=== PATIENT | female | born 1960 ===

== ENCOUNTER 2021-04-14 12:09 | Inpatient (IN) | payer OTHER ==
--- NOTE | 2021-04-14 12:33 | Emergency Department Report ---
- General Stated complaint: GENERAL,WEAKNESS Time Seen by Provider: 04/14/21 12:29 - History of Present Illness Initial comments: 60-year-old female, no past medical history, presents to ED with generalized weakness. Patient tested positive for COVID-19 1 week ago. She reports body aches, sore throat, generalized weakness, mild shortness of breath. Patient tested positive for COVID-19 at [facility]. At that time her O2 sats were 92% on room air according to her discharge paperwork. Today, patient went to [facility] because she was feeling more weak. Patient was found to be hypoxic in the clinic, so EMS was called. Patient transported here to the ED. Her current O2 sats are 87% on room air. Patient is unvaccinated against COVID-19. Complaint: generalized weakness -: week(s) (1) Location: generalized Severity: moderate Consistency: constant Improves with: none Worsens with: none Associated Symptoms: myalgias, shortness of breath. denies: chest pain, fever/chills ED Review of Systems ROS: Stated complaint: GENERAL,WEAKNESS Other details as noted in HPI Comment: All other systems reviewed and negative Constitutional: weakness. denies: fever ENT: throat pain Respiratory: shortness of breath. denies: cough Cardiovascular: denies: chest pain Musculoskeletal: myalgia ED Physical Exam - General General appearance: alert, in no apparent distress - Head Head exam: Present: atraumatic, normocephalic - Eye Eye exam: Present: normal appearance, EOMI - ENT ENT exam: Present: mucous membranes moist - Neck Neck exam: Present: normal inspection - Respiratory Respiratory exam: Present: normal lung sounds bilaterally. Absent: respiratory distress - Cardiovascular Cardiovascular Exam: Present: regular rate, normal rhythm - GI/Abdominal GI/Abdominal exam: Present: soft. Absent: distended, tenderness - Extremities Exam Extremities exam: Present: normal inspection - Neurological Exam Neurological exam: Present: alert, oriented X3 - Psychiatric Psychiatric exam: Present: normal affect, normal mood - Skin Skin exam: Present: warm, dry, intact, normal color ED Course Vital Signs 04/14/21 04/14/21 04/14/21 12:20 13:00 13:30 Temperature 98.3 F Pulse Rate 84 87 85 Respiratory 22 22 21 Rate Blood Pressure 86/62 83/61 98/62 O2 Sat by Pulse 86 96 99 Oximetry 04/14/21 04/14/21 14:00 14:30 Temperature Pulse Rate 87 86 Respiratory 24 21 Rate Blood Pressure 112/64 112/64 O2 Sat by Pulse 92 93 Oximetry ED Medical Decision Making - Lab Data Result diagrams: 04/14/21 12:51 04/14/21 12:51 - Radiology Data Radiology results: report reviewed, image reviewed - Medical Decision Making 60-year-old female, Covid positive, with O2 sats of 87% on room air. Chest x- ray shows patchy bilateral pneumonia. Blood cultures drawn, patient given Decadron, Rocephin, azithromycin. Patient comfortable on 5 L O2 via nasal cannula. Patient will be admitted to hospitalist, Dr. Harmon, for further management. - Differential Diagnosis COVID-19, pneumonia Critical care attestation.: If time is entered above; I have spent that time in minutes in the direct care of this critically ill patient, excluding procedure time. ED Disposition Clinical Impression: COVID-19, Pneumonia, Acute respiratory failure with hypoxia Disposition: ADMITTED INPATIENT Is pt being admited?: Yes Condition: Stable
[2021-04-14] MEDS ORDERED: cefTRIAXone/NS 1 GM/50 ML 1 GM/50 ML BAG IV ONE (12:34)
[2021-04-14] MEDS ORDERED: DEXAMETHASONE 4 MG TAB PO ONE (12:34)
[2021-04-14 13:08] LABS: Hematocrit 40.6 % (30.3-42.9); Hemoglobin 13.1 gm/dl (10.1-14.3); Mean Corpuscular HGB Conc 32 % (30-34); Mean Corpuscular Volume 81 fl (79-97); Red Blood Count 5.04 M/mm3 (3.65-5.03)
[2021-04-14 13:28] LABS: Alanine Aminotransferase 12 units/L (7-56); Albumin 3.8 g/dL (3.9-5); Blood Urea Nitrogen 6 mg/dL (7-17); Calcium 7.9 mg/dL (8.4-10.2); Hemolysis Index 5
[2021-04-14] MEDS ORDERED: dexAMETHasone 4 MG/ML VIAL ONE (13:49)
[2021-04-14] MEDS ORDERED: AZITHROMYCIN/NS 500 MG/250 ML 500 MG/250 ML BAG IV ONE (13:49)
[2021-04-14] MEDS ORDERED: HYDROmorphone 1 MG/1 ML INJ IV PRN (13:59)
[2021-04-14] MEDS ORDERED: ONDANSETRON 4 MG/2 ML INJ IV PRN (13:59)
[2021-04-14] MEDS ORDERED: oxyCODONE /ACETAMINOPHEN 5-325MG TAB PO PRN (13:59)
[2021-04-14] MEDS ORDERED: SODIUM CHLORIDE 0.9% 1000 ML 1,000 ML IV ONE (14:00)
--- NOTE | 2021-04-14 14:00 | History and Physical Report ---
History of Present Illness Chief complaint: I am weak and I cannot breathe History of present illness: 60 YO Female with Coronavirus Infection diagnosed 1 week ago presents to ED for evaluation. Patient reports "I am weak and I cannot breathe". Patient states that she has experienced shortness of breath, subjective fever, loss of sense of smell, loss of sense of taste, generalized weakness, diminished exercise yanelis erance, body aches, fatigue, malaise over the past 1 week with persistent and worsening symptoms over the same timeframe. Patient diagnosed with coronavirus infection 1 week ago and was treated with outpatient therapy with worsening symptoms. EMS was notified and upon arrival the patient was found to be in distress and subsequent transported to [facility] for further care and evaluation of the aforementioned symptoms. The patient was seen and evaluated in the emergency department. All lab and imaging studies reviewed. Patient found to have a pulse oximetry of 87% while on room air which is consistent with acute hypoxemic respiratory failure. Chest x-ray revealed bilateral pneumonia. Patient admitted to medical floor and initiated on pneumonia protocol as well as coronavirus protocol. Patient knowledges subjective fever, denies chills, chest pain, palpitation, skin rash, recent ill contacts. No prior admission for review. No medication listed at time of admission for reconciliation. Advanced care planning conducted in ED. Patient is not vaccinated against COVID-19. Past History Past Medical History: other (See HPI) Past Surgical History: No surgical history, Other (Reviewed) Social history: single. denies: smoking, alcohol abuse, prescription drug abuse Family history: hypertension Medications and Allergies Active Meds: Active Medications Azithromycin (Azithromycin 250 Mg Tab) 500 mg PO ONCE ONE; Protocol Stop: 04/14/21 12:35 Dexamethasone (Dexamethasone 4 Mg Tab) 6 mg PO ONCE ONE Stop: 04/14/21 12:35 Ceftriaxone Sodium (Rocephin/Ns 1 Gm/50 Ml) 1 gm in 50 mls @ 100 mls/hr IV ONCE ONE; Protocol Stop: 04/14/21 13:03 Review of Systems Constitutional: fever, weakness, malaise, lethargy Ears, nose, mouth and throat: other (Loss of sense of smell, loss of sense of taste), no ear pain, no tinnitis, no decreased hearing, no nasal congestion Breasts: no change in shape, no swelling, no mass Cardiovascular: no chest pain, no orthopnea, no rapid/irregular heart beat, no syncope, no lightheadedness Respiratory: cough, shortness of breath Gastrointestinal: no nausea, no vomiting, no diarrhea, no constipation Genitourinary Female: no pelvic pain, no flank pain, no dysuria, no urinary frequency, no urgency Rectal: no pain, no incontinence, no bleeding Musculoskeletal: no neck stiffness, no neck pain, no shooting arm pain, no arm numbness/tingling, no shooting leg pain, no leg numbness/tingling Integumentary: no rash, no redness, no sores, no jaundice Neurological: no head injury, no paralysis, no parathesias, no tingling, no syncope, no tremors Psychiatric: no anxiety, no change in sleep habits, no insomnia, no hypersomnia, no change in appetite, no suicidal ideation Endocrine: no cold intolerance, no polyphagia, no polydipsia, no nocturia, no flushing Hematologic/Lymphatic: no easy bruising, no easy bleeding, no lymphedema Allergic/Immunologic: no urticaria, no allergic rhinitis, no anaphylaxis Exam - Constitutional General appearance: Present: mild distress - EENT Eyes: Present: PERRL ENT: hearing intact, clear oral mucosa - Neck Neck: Present: supple, normal ROM - Respiratory Respiratory effort: labored, accessory muscle use Respiratory: bilateral: diminished, rhonchi - Cardiovascular Heart Sounds: Present: S1 & S2. Absent: rub, click - Extremities Extremities: pulses symmetrical, No edema Peripheral Pulses: within normal limits - Abdominal General gastrointestinal: Present: soft, non-tender, non-distended, normal bowel sounds Female genitourinary: Present: normal - Integumentary Integumentary: Present: clear, warm, dry - Musculoskeletal Musculoskeletal: gait normal, strength equal bilaterally - Psychiatric Psychiatric: appropriate mood/affect, intact judgment & insight - Neurologic Neurologic: CNII-XII intact, moves all extremities Results - Labs CBC & Chem 7: 04/14/21 12:51 04/14/21 12:51 Labs: Abnormal lab results 04/14/21 04/14/21 04/14/21 Range/Units 12:51 12:51 12:51 D-Dimer 986.33 H (0-234) ng/mlDDU Potassium 3.4 L (3.6-5.0) mmol/L Chloride 96.1 L (98-107) mmol/L BUN 6 L (7-17) mg/dL Calcium 7.9 L (8.4-10.2) mg/dL Ferritin 308.5 H (10.0-200.0) ng/mL AST 56 H (5-40) units/L Lactate Dehydrogenase 505 H (91-180) units/L C-Reactive Protein 16.80 H (0.00-1.30) mg/dL Albumin 3.8 L (3.9-5) g/dL Assessment and Plan - Patient Problems (1) Acute respiratory failure Current Visit: Yes Status: Acute Qualifiers: Respiratory failure complication: hypoxia Qualified Code(s): J96.01 - Acute respiratory failure with hypoxia Plan to address problem: Chest x-ray, supplemental oxygen, pulse oximetry, nebulizer therapy, prone positioning while in bed, pulmonary toilet (2) Coronavirus infection Current Visit: Yes Status: Acute Plan to address problem: Coronavirus protocol: IV antibiotic therapy, IV steroid therapy, supplemental oxygen, pulse oximetry, vitamin C therapy, vitamin D therapy, zinc therapy, prophylactic anticoagulation. (3) Pneumonia Current Visit: Yes Status: Acute Plan to address problem: Pneumonia protocol: Chest x-ray, CBC, CMP, supplemental oxygen, pulse oximetry, nebulizer therapy, blood culture. (4) COVID-19 vaccination not done Current Visit: Yes Status: Acute (5) DVT prophylaxis Current Visit: Yes Status: Acute Plan to address problem: SCD to bilateral lower extremities while in bed, prophylactic anticoagulation (6) Advance care planning Current Visit: Yes Status: Acute Plan to address problem: Disease education conducted, care plan discussed, prior diagnosis discussed, prognosis discussed, patient is full code, patient knowledges understanding agree with care plan. Patient counseled regarding lack of vaccination status. Patient counseled regarding vaccination after discharge from hospital. +30 minutes.
[2021-04-14 14:05] LABS: BUN/Creatinine Ratio 10; Bilirubin,Direct < 0.2 mg/dL (0-0.2); Platelet Count 160 K/mm3 (140-440); Red Cell Distribution Width 21.6 % (13.2-15.2)
[2021-04-14] MEDS: AZITHROMYCIN 250 MG TAB PO ONE ×2 (14:22→15:29)
[2021-04-14 14:26] LABS: Anisocytosis 1+; Large Platelets Few; Platelet Estimate Consistent w Auto; Total Cells Counted 100
--- NOTE | 2021-04-14 14:40 | XRay Report ---
CHEST 1 VIEW INDICATION: cough. COMPARISON: None FINDINGS: SUPPORT DEVICES: None. HEART: Mild cardiomegaly. LUNGS/PLEURA: Moderate patchy bibasilar consolidation. ADDITIONAL FINDINGS: None. IMPRESSION: 1. Moderate patchy bibasilar consolidation. Signer Name: Bran Sosa MD Signed: 04/14/2021 2:36 PM Workstation Name: [id number] [id number]
[2021-04-14] MEDS: AZITHROMYCIN/NS 500 MG/250 ML 500 MG/250 ML BAG IV SCH (15:29)
[2021-04-14] MEDS: cefTRIAXone/NS 2 GM/100 ML 2 GM/100 ML BAG IV SCH (15:29)
[2021-04-14] MEDS: methylPREDNISolone Sod Succinate 40 MG/1 ML INJ IV SCH (22:35)
[2021-04-14] MEDS: ZINC SULFATE 220 MG CAP PO SCH (22:40)
[2021-04-14] MEDS: ASCORBIC ACID 500 MG TAB PO SCH (22:40)
[2021-04-14] MEDS: HEPARIN 5,000 UNIT/1 ML VIAL SUB-Q SCH (22:40)
[2021-04-14] MEDS: FAMOTIDINE 20 MG TAB PO SCH (22:40)
[2021-04-15 04:38] LABS: Hematocrit 38.2 % (30.3-42.9); Hemoglobin 12.2 gm/dl (10.1-14.3); Mean Corpuscular HGB Conc 32 % (30-34); Mean Corpuscular Volume 80 fl (79-97); Platelet Count 190 K/mm3 (140-440); Red Blood Count 4.77 M/mm3 (3.65-5.03); Red Cell Distribution Width 19.1 % (13.2-15.2)
[2021-04-15 04:46] LABS: Blood Urea Nitrogen 7 mg/dL (7-17); Calcium 7.5 mg/dL (8.4-10.2); Hemolysis Index 8
[2021-04-15 04:53] LABS: BUN/Creatinine Ratio 14
[2021-04-15 06:33] LABS: Total Cells Counted 100
[2021-04-15 06:34] LABS: Band Neutrophils # (Manual) 0.4 K/mm3; Hypochromasia 1+
[2021-04-15 06:35] LABS: Large Platelets Few; Platelet Estimate Consistent w Auto
[2021-04-15] MEDS: methylPREDNISolone Sod Succinate 40 MG/1 ML INJ IV SCH ×3 (07:35→23:01)
--- NOTE | 2021-04-15 08:02 | Progress Note ---
Assessment and Plan Assessment and plan: 6-year-old female with no significant past medical history who presented with shortness of breath after COVID-19 diagnosis a week ago. Found to be in acute hypoxic respiratory failure. CT was negative for PE, but shows bilateral pneumonia. Currently on 8 L. Guarded prognosis. #Acute hypoxic respiratory failure #COVID-19 pneumonia #Community-acquired pneumonia -COVID-19 PCR positive, patient reports testing positive a week ago at [facility] -CTA negative for PE, shows bilateral opacities with super imposed bilateral lower lobe consolidations -To new supplemental O2, will wean as able -Maintain oxygen saturations greater than 90% -Low threshold for Pulmonology consult if patient requires increased oxygen saturation -Continue azithromycin and Rocephin -Dexamethasone x10 days -Infectious disease consulted, assistance appreciated -Encouraged proning #Leukopenia -White blood cell count 3.3 -Likely secondary to infection -will continue to monitor #Splenic artery aneurysm -Incidental finding on CT -1.8 x 1.9 cm in size Disposition Plan: Continue medical management Total Time Spent with Patient (Minutes): 20 minutes History Interval history: No acute events. Patient saturating in high 80s on 8L, increased to 10. Patient hungarian speaking and [employer] phone was used for translation. Reports having a headache and cough. Otherwise comfortable. Hospitalist Physical - Physical exam Narrative exam: GENERAL: Well-developed well-nourished. Sitting up in bed, no acute distress. HEENT: NC @ 8LPM. NECK: Supple. CHEST/LUNGS: Decreased breath sounds bilaterally. HEART/CARDIOVASCULAR: RRR. No murmur, rubs or gallops appreciated. ABDOMEN: +BS. NT/ND. SKIN: No rashes noted. NEURO: No focal motor deficit. Follows all commands. MUSCULOSKELETAL: No joint effusion EXTREMITIES: No cyanosis, clubbing or edema. PSYCH: Cooperative. - Constitutional Vitals: Temp Pulse Resp BP Pulse Ox 98.3 F 79 25 H 138/82 89 04/14/21 12:20 04/15/21 02:00 04/15/21 02:00 04/15/21 02:00 04/15/21 02:00 General appearance: Present: mild distress Results - Labs CBC & Chem 7: 04/16/21 07:11 04/16/21 07:11 Labs: Laboratory Last Values WBC 3.3 K/mm3 (4.5-11.0) L 04/15/21 04:11 RBC 4.77 M/mm3 (3.65-5.03) 04/15/21 04:11 Hgb 12.2 gm/dl (10.1-14.3) 04/15/21 04:11 Hct 38.2 % (30.3-42.9) 04/15/21 04:11 MCV 80 fl (79-97) 04/15/21 04:11 MCH 26 pg (28-32) L 04/15/21 04:11 MCHC 32 % (30-34) 04/15/21 04:11 RDW 19.1 % (13.2-15.2) H 04/15/21 04:11 Plt Count 190 K/mm3 (140-440) 04/15/21 04:11 Add Manual Diff Complete 04/15/21 04:11 Total Counted 100 04/15/21 04:11 Seg Neuts % (Manual) 67.0 % (40.0-70.0) 04/15/21 04:11 Band Neutrophils % 11.0 % 04/15/21 04:11 Lymphocytes % (Manual) 11.0 % (13.4-35.0) L 04/15/21 04:11 Reactive Lymphs % (Man) 1.0 % 04/15/21 04:11 Monocytes % (Manual) 7.0 % (0.0-7.3) 04/15/21 04:11 Basophils % (Manual) 1.0 % (0.0-1.8) 04/15/21 04:11 Myelocytes % 1.0 % 04/15/21 04:11 Promyelocytes % 1.0 % 04/15/21 04:11 Nucleated RBC % Not Reportable 04/15/21 04:11 Seg Neutrophils # Man 2.2 K/mm3 (1.8-7.7) 04/15/21 04:11 Band Neutrophils # 0.4 K/mm3 04/15/21 04:11 Lymphocytes # (Manual) 0.4 K/mm3 (1.2-5.4) L 04/15/21 04:11 Abs React Lymphs (Man) 0.0 K/mm3 04/15/21 04:11 Monocytes # (Manual) 0.2 K/mm3 (0.0-0.8) 04/15/21 04:11 Eosinophils # (Manual) 0.0 K/mm3 (0.0-0.4) 04/15/21 04:11 Basophils # (Manual) 0.0 K/mm3 (0.0-0.1) 04/15/21 04:11 Metamyelocytes # 0.0 K/mm3 04/15/21 04:11 Myelocytes # 0.0 K/mm3 04/15/21 04:11 Promyelocytes # 0.0 K/mm3 04/15/21 04:11 Blast Cells # 0.0 K/mm3 04/15/21 04:11 WBC Morphology Not Reportable 04/15/21 04:11 Hypersegmented Neuts Not Reportable 04/15/21 04:11 Hyposegmented Neuts Not Reportable 04/15/21 04:11 Hypogranular Neuts Not Reportable 04/15/21 04:11 Smudge Cells Not Reportable 04/15/21 04:11 Toxic Granulation Not Reportable 04/15/21 04:11 Toxic Vacuolation Not Reportable 04/15/21 04:11 Dohle Bodies Not Reportable 04/15/21 04:11 Pelger-Huet Anomaly Not Reportable 04/15/21 04:11 Edelmira Rods Not Reportable 04/15/21 04:11 Platelet Estimate Consistent w auto 04/15/21 04:11 Clumped Platelets Not Reportable 04/15/21 04:11 Plt Clumps, EDTA Not Reportable 04/15/21 04:11 Large Platelets Few 04/15/21 04:11 Giant Platelets Not Reportable 04/15/21 04:11 Platelet Satelliting Not Reportable 04/15/21 04:11 Plt Morphology Comment Not Reportable 04/15/21 04:11 RBC Morphology Not Reportable 04/15/21 04:11 Dimorphic RBCs Not Reportable 04/15/21 04:11 Polychromasia Not Reportable 04/15/21 04:11 Hypochromasia 1+ 04/15/21 04:11 Poikilocytosis Not Reportable 04/15/21 04:11 Anisocytosis Not Reportable 04/15/21 04:11 Microcytosis Not Reportable 04/15/21 04:11 Macrocytosis Not Reportable 04/15/21 04:11 Spherocytes Not Reportable 04/15/21 04:11 Pappenheimer Bodies Not Reportable 04/15/21 04:11 Sickle Cells Not Reportable 04/15/21 04:11 Target Cells Not Reportable 04/15/21 04:11 Tear Drop Cells Not Reportable 04/15/21 04:11 Ovalocytes Not Reportable 04/15/21 04:11 Helmet Cells Not Reportable 04/15/21 04:11 [place] Bodies Not Reportable 04/15/21 04:11 [place] Rings Not Reportable 04/15/21 04:11 [place] Cells Not Reportable 04/15/21 04:11 Bite Cells Not Reportable 04/15/21 04:11 Crenated Cell Not Reportable 04/15/21 04:11 Elliptocytes Not Reportable 04/15/21 04:11 Acanthocytes (Spur) Not Reportable 04/15/21 04:11 Rouleaux Not Reportable 04/15/21 04:11 Hemoglobin C Crystals Not Reportable 04/15/21 04:11 Schistocytes Not Reportable 04/15/21 04:11 Malaria parasites Not Reportable 04/15/21 04:11 Jimmy Bodies Not Reportable 04/15/21 04:11 Hem Pathologist Commnt No 04/15/21 04:11 D-Dimer 986.33 ng/mlDDU (0-234) H 04/14/21 12:51 Sodium 138 mmol/L (137-145) 04/15/21 04:11 Potassium 4.0 mmol/L (3.6-5.0) 04/15/21 04:11 Chloride 99.3 mmol/L (98-107) 04/15/21 04:11 Carbon Dioxide 26 mmol/L (22-30) 04/15/21 04:11 Anion Gap 17 mmol/L 04/15/21 04:11 BUN 7 mg/dL (7-17) 04/15/21 04:11 Creatinine 0.5 mg/dL (0.6-1.2) L 04/15/21 04:11 Estimated GFR > 60 ml/min 04/15/21 04:11 BUN/Creatinine Ratio 14 % 04/15/21 04:11 Glucose 191 mg/dL (65-100) H 04/15/21 04:11 Calcium 7.5 mg/dL (8.4-10.2) L 04/15/21 04:11 Ferritin 308.5 ng/mL (10.0-200.0) H 04/14/21 12:51 Total Bilirubin 0.40 mg/dL (0.1-1.2) 04/14/21 12:51 Direct Bilirubin < 0.2 mg/dL (0-0.2) 04/14/21 12:51 Indirect Bilirubin 0.2 mg/dL 04/14/21 12:51 AST 56 units/L (5-40) H 04/14/21 12:51 ALT 12 units/L (7-56) 04/14/21 12:51 Alkaline Phosphatase 84 units/L (35-129) 04/14/21 12:51 Lactate Dehydrogenase 505 units/L (91-180) H 04/14/21 12:51 C-Reactive Protein 16.80 mg/dL (0.00-1.30) H 04/14/21 12:51 Total Protein 8.0 g/dL (6.3-8.2) 04/14/21 12:51 Albumin 3.8 g/dL (3.9-5) L 04/14/21 12:51 Albumin/Globulin Ratio 0.9 % 04/14/21 12:51 Microbiology: Microbiology 04/14/21 12:51 Peripheral/Venous Blood Culture - Preliminary Culture in Progress 04/14/21 12:51 Peripheral/Venous Blood Culture - Preliminary Culture in Progress Active Medications - Current Medications Current Medications: Generic Name Dose Route Start Last Admin Trade Name Freq PRN Reason Stop Dose Admin Acetaminophen 650 mg 04/14/21 13:59 Acetaminophen 325 Mg Tab PO Q4H PRN Pain MILD(1-3)/Fever >100.5/WEISS Albuterol 2.5 mg 04/14/21 13:59 Albuterol 2.5 Mg/3 Ml Nebu IH Q4HRT PRN Shortness Of Breath Ascorbic Acid 500 mg 04/14/21 22:00 04/14/21 22:40 Ascorbic Acid 500 Mg Tab PO 500 mg BID JOJO Administration Cholecalciferol 1,000 unit 04/15/21 10:00 Cholecalciferol (Vit D3) 1000 Unit (25 Mcg) Tab PO QDAY JOJO Famotidine 20 mg 04/14/21 22:00 04/14/21 22:40 Famotidine 20 Mg Tab PO 20 mg BID JOJO Administration Heparin Sodium (Porcine) 5,000 unit 04/14/21 22:00 04/14/21 22:40 Heparin 5,000 Unit/1 Ml Vial SUB-Q 5,000 unit Q12HR JOJO Administration Hydromorphone HCl 0.5 mg 04/14/21 13:59 Hydromorphone 1 Mg/1 Ml Inj IV Q23H PRN Pain , Severe (7-10) Ceftriaxone Sodium 2 gm in 100 mls @ 200 mls/hr 04/14/21 15:00 04/14/21 15:29 Rocephin/Ns 2 Gm/100 Ml IV 04/18/21 15:29 200 mls/hr Q24H JJOO Administration Protocol Azithromycin 500 mg in 250 mls @ 250 mls/hr 04/14/21 15:00 04/14/21 15:29 Zithromax/Ns IV 04/18/21 15:59 250 mls/hr Q24H JOJO Administration Protocol Methylprednisolone Sodium Succinate 40 mg 04/14/21 22:00 04/15/21 07:35 Methylprednisolone Sod Succinate 40 Mg/1 Ml Inj IV 40 mg Q8HR JOJO Administration Ondansetron HCl 4 mg 04/14/21 13:59 Ondansetron 4 Mg/2 Ml Inj IV Q8H PRN Nausea And Vomiting Oxycodone/Acetaminophen 1 tab 04/14/21 13:59 Oxycodone /Acetaminophen 5-325mg Tab PO Q16H PRN Pain, Moderate (4-6) Sodium Chloride 10 ml 04/14/21 22:00 Sodium Chloride 0.9% 10 Ml Flush Syringe IV BID JOJO Sodium Chloride 10 ml 04/14/21 13:59 Sodium Chloride 0.9% 10 Ml Flush Syringe IV PRN PRN LINE FLUSH Zinc Sulfate 220 mg 04/14/21 22:00 04/14/21 22:40 Zinc Sulfate 220 Mg Cap PO 220 mg BID JOJO Administration
[2021-04-15] MEDS ORDERED: CHOLECALCIFEROL (VIT D3) 400 UNIT TAB PO SCH (10:00)
--- NOTE | 2021-04-15 10:10 | Cat Scan Report ---
CTA CHEST WITH CONTRAST INDICATION / CLINICAL INFORMATION: respiratory failure, elevated d-dimer 100 ml omni 350 . TECHNIQUE: Axial CT images were obtained through the chest after injection of 100 cc Omnipaque 350 IV contrast. 3 plane MIP and/or 3D reconstructions were produced. All CT scans at this location are per formed using CT dose reduction for ALARA by means of automated exposure control. COMPARISON: Chest radiograph dated 04/14/2021 FINDINGS: PULMONARY ARTERIES: No pulmonary emboli. THORACIC AORTA: No significant abnormality. HEART: No significant abnormality. CORONARY ARTERY CALCIFICATION: None. MEDIASTINUM / DIEGO: Prominence of mediastinal lymph nodes, likely reactive. PLEURA: No pleural effusion. No pneumothorax. LUNGS: There are scattered patchy peripheral airspace opacities throughout the bilateral lungs with c onsolidative process is noted in the bilateral lower lobes. ADDITIONAL FINDINGS: There is a moderate to large hiatal hernia. UPPER ABDOMEN: Hepatic steatosis. There is a splenic artery aneurysm measuring 1.8 x 1.9 cm. SKELETAL STRUCTURES: No significant osseous abnormality. IMPRESSION: 1. No CT evidence for pulmonary embolism. 2. Scattered peripheral patchy airspace opacities suggesting Covid pneumonia which appears to be supe rimposed upon bilateral lower lobe consolidation suggesting bacterial pneumonia. 3. There is moderate to large hiatal hernia. 4. There is a 1.8 x 1.9 cm splenic artery aneurysm. Signer Name: Kavon Gunn DO Signed: 04/15/2021 10:05 AM Workstation Name: [id number]
[2021-04-15] MEDS: FAMOTIDINE 20 MG TAB PO SCH ×2 (11:00→23:00)
[2021-04-15] MEDS: ZINC SULFATE 220 MG CAP PO SCH ×2 (11:00→23:01)
[2021-04-15] MEDS: ASCORBIC ACID 500 MG TAB PO SCH ×2 (11:00→23:01)
[2021-04-15] MEDS: CHOLECALCIFEROL (VIT D3) 1000 UNIT (25 mcg) TAB PO SCH (11:00)
[2021-04-15] MEDS: HEPARIN 5,000 UNIT/1 ML VIAL SUB-Q SCH ×2 (11:00→23:00)
[2021-04-15] MEDS: cefTRIAXone/NS 2 GM/100 ML 2 GM/100 ML BAG IV SCH (14:39)
[2021-04-15] MEDS: AZITHROMYCIN/NS 500 MG/250 ML 500 MG/250 ML BAG IV SCH (15:09)
--- NOTE | 2021-04-15 15:14 | Consultation ---
History of Present Illness - Reason for Consult Consult date: 04/15/21 - History of Present Illness 60-year-old female past medical history obesity presented to the hospital with COVID-19 was diagnosed 1 week prior to admission. She complains of weakness and shortness of breath with subjective fevers, anosmia, generalized myalgias. Her symptoms have been present over that timeframe and worsening since onset. She was treated with outpatient therapy, unclear what that is and has worsening symptoms since then. Afebrile with a white count of 3.3. Covid positive. Normal renal function. Pending procalcitonin. Elevated CRP. Blood cultures no growth so far. Currently on ceftriaxone, azithromycin, dexamethasone. On 15 L nasal cannula. Imaging personally reviewed: Chest CTA: No PE. Patchy airspace opacities bilaterally. Review of systems: Deferred to reduce to the risk of transmission of COVID-19 Past History Past Medical History: other (See HPI) Past Surgical History: No surgical history, Other (Reviewed) Social history: single. denies: smoking, alcohol abuse, prescription drug abuse Family history: hypertension Medications and Allergies Allergies Allergy/AdvReac Type Severity Reaction Status Date / Time No Known Allergies Allergy Verified 04/14/21 21:46 Active Meds: Active Medications Acetaminophen (Acetaminophen 325 Mg Tab) 650 mg PO Q4H PRN PRN Reason: Pain MILD(1-3)/Fever >100.5/WEISS Albuterol (Albuterol 2.5 Mg/3 Ml Nebu) 2.5 mg IH Q4HRT PRN PRN Reason: Shortness Of Breath Ascorbic Acid (Ascorbic Acid 500 Mg Tab) 500 mg PO BID [facility] Last Admin: 04/15/21 11:00 Dose: 500 mg Documented by: Cholecalciferol (Cholecalciferol (Vit D3) 1000 Unit (25 Mcg) Tab) 1,000 unit PO QDAY [facility] Last Admin: 04/15/21 11:00 Dose: 1,000 unit Documented by: Famotidine (Famotidine 20 Mg Tab) 20 mg PO BID [facility] Last Admin: 04/15/21 11:00 Dose: 20 mg Documented by: Heparin Sodium (Porcine) (Heparin 5,000 Unit/1 Ml Vial) 5,000 unit SUB-Q Q12HR [facility] Last Admin: 04/15/21 11:00 Dose: 5,000 unit Documented by: Hydromorphone HCl (Hydromorphone 1 Mg/1 Ml Inj) 0.5 mg IV Q23H PRN PRN Reason: Pain , Severe (7-10) Ceftriaxone Sodium (Rocephin/Ns 2 Gm/100 Ml) 2 gm in 100 mls @ 200 mls/hr IV Q24H [facility]; Protocol Stop: 04/18/21 15:29 Last Admin: 04/15/21 14:39 Dose: 200 mls/hr Documented by: Azithromycin (Zithromax/Ns) 500 mg in 250 mls @ 250 mls/hr IV Q24H [facility]; Abraham col Stop: 04/18/21 15:59 Last Admin: 04/15/21 15:09 Dose: 250 mls/hr Documented by: Methylprednisolone Sodium Succinate (Methylprednisolone Sod Succinate 40 Mg/1 Ml Inj) 40 mg IV Q8HR [facility] Last Admin: 04/15/21 14:39 Dose: 40 mg Documented by: Ondansetron HCl (Ondansetron 4 Mg/2 Ml Inj) 4 mg IV Q8H PRN PRN Reason: Nausea And Vomiting Oxycodone/Acetaminophen (Oxycodone /Acetaminophen 5-325mg Tab) 1 tab PO Q16H PRN PRN Reason: Pain, Moderate (4-6) Sodium Chloride (Sodium Chloride 0.9% 10 Ml Flush Syringe) 10 ml IV BID [facility] Last Admin: 04/15/21 11:00 Dose: 10 ml Documented by: Sodium Chloride (Sodium Chloride 0.9% 10 Ml Flush Syringe) 10 ml IV PRN PRN PRN Reason: LINE FLUSH Zinc Sulfate (Zinc Sulfate 220 Mg Cap) 220 mg PO BID [facility] Last Admin: 04/15/21 11:00 Dose: 220 mg Documented by: Physical Examination - Physical Exam Narrative exam: Physical exam deferred to reduce risk of transmission of COVID-19. Please refer to primary team's note. - Constitutional Vitals: Vital Signs Temp Pulse Resp BP Pulse Ox 98.3 F 84 23 121/63 91 04/14/21 12:20 04/15/21 09:00 04/15/21 15:00 04/15/21 15:00 04/15/21 15:00 Results - Labs CBC & Chem 7: 04/15/21 04:11 04/15/21 04:11 Labs: Abnormal lab results 04/15/21 04/15/21 04/15/21 Range/Units 04:11 04:11 08:00 WBC 3.3 L (4.5-11.0) K/mm3 MCH 26 L (28-32) pg RDW 19.1 H (13.2-15.2) % Lymphocytes % (Manual) 11.0 L (13.4-35.0) % Lymphocytes # (Manual) 0.4 L (1.2-5.4) K/mm3 Creatinine 0.5 L (0.6-1.2) mg/dL Glucose 191 H (65-100) mg/dL Calcium 7.5 L (8.4-10.2) mg/dL Coronavirus (PCR) Positive A (Negative) Assessment and Plan Cultures: Blood culture no growth so far A/P: 60-year-old female past medical history hypertension admitted with COVID-19 #Severe COVID-19 pneumonia: Patient presented with a week of symptoms, chest x- ray with diffuse bilateral infiltrates, admission O2 sats decreased on room air. Inflammatory markers elevated #Acute hypoxemic respiratory failure: Likely secondary to COVID-19 infection. Currently on 15L salter #Obesity #Leukopenia: Likely secondary to COVID-19 Recs: -Steroids for 10 days -Remdesivir 200 mg IV q day x 1 followed by 100 mg IV q day x 4 days -Obtain q48-72h inflammatory markers - ferritin, Ddimer, CRP, LDH -Given elevated CRP, if requiring HFNC 30L/min ok to give Actemra once -Continue ceftriaxone 2 gm IV qday and azithromycin 500 mg PO qday, if procalcitonin <0.25 ng/mL stop antibiotics -Anticoagulation per hospital protocol -Proning as able Thank you for the consult, we will continue to follow. MD Amada Gonzalez [facility] O: [phone] F: [phone]
[2021-04-16] MEDS: methylPREDNISolone Sod Succinate 40 MG/1 ML INJ IV SCH ×3 (05:28→21:49)
--- NOTE | 2021-04-16 08:55 | Consultation ---
History of Present Illness Reason for consult: dyspnea History of present illness: This is a female with history of recent dx of covid who comes in with worsening dyspnea. She has had cough with sob. In the ER she was found to have bilat pneumonia. She was admitted She is still sob. Feels about the same No hx of tobacco use reported Past History Past Medical History: other (See HPI) Past Surgical History: No surgical history, Other (Reviewed) Social history: single. denies: smoking, alcohol abuse, prescription drug abuse Family history: hypertension Medications and Allergies Allergies Allergy/AdvReac Type Severity Reaction Status Date / Time No Known Allergies Allergy Verified 04/14/21 21:46 Home Medications Medication Instructions Recorded Confirmed Last Taken Type No Known Home Medications [No 04/16/21 04/16/21 Unknown History Reported Home Medications] Active Meds: Active Medications Acetaminophen (Acetaminophen 325 Mg Tab) 650 mg PO Q4H PRN PRN Reason: Pain MILD(1-3)/Fever >100.5/WEISS Albuterol (Albuterol 2.5 Mg/3 Ml Nebu) 2.5 mg IH Q4HRT PRN PRN Reason: Shortness Of Breath Ascorbic Acid (Ascorbic Acid 500 Mg Tab) 500 mg PO BID [facility] Last Admin: 04/15/21 23:01 Dose: 500 mg Documented by: Cholecalciferol (Cholecalciferol (Vit D3) 1000 Unit (25 Mcg) Tab) 1,000 unit PO QDAY [facility] Last Admin: 04/15/21 11:00 Dose: 1,000 unit Documented by: Famotidine (Famotidine 20 Mg Tab) 20 mg PO BID [facility] Last Admin: 04/15/21 23:00 Dose: 20 mg Documented by: Heparin Sodium (Porcine) (Heparin 5,000 Unit/1 Ml Vial) 5,000 unit SUB-Q Q12HR [facility] Last Admin: 04/15/21 23:00 Dose: 5,000 unit Documented by: Hydromorphone HCl (Hydromorphone 1 Mg/1 Ml Inj) 0.5 mg IV Q23H PRN PRN Reason: Pain , Severe (7-10) Ceftriaxone Sodium (Rocephin/Ns 2 Gm/100 Ml) 2 gm in 100 mls @ 200 mls/hr IV Q24H [facility]; Protocol Stop: 04/18/21 15:29 Last Admin: 04/15/21 14:39 Dose: 200 mls/hr Documented by: Azithromycin (Zithromax/Ns) 500 mg in 250 mls @ 250 mls/hr IV Q24H [facility]; Protocol Stop: 04/18/21 15:59 Last Admin: 04/15/21 15:09 Dose: 250 mls/hr Documented by: Methylprednisolone Sodium Succinate (Methylprednisolone Sod Succinate 40 Mg/1 Ml Inj) 40 mg IV Q8HR [facility] Last Admin: 04/16/21 05:28 Dose: 40 mg Documented by: Ondansetron HCl (Ondansetron 4 Mg/2 Ml Inj) 4 mg IV Q8H PRN PRN Reason: Nausea And Vomiting Oxycodone/Acetaminophen (Oxycodone /Acetaminophen 5-325mg Tab) 1 tab PO Q16H PRN PRN Reason: Pain, Moderate (4-6) Sodium Chloride (Sodium Chloride 0.9% 10 Ml Flush Syringe) 10 ml IV BID [facility] Last Admin: 04/15/21 23:00 Dose: 10 ml Documented by: Sodium Chloride (Sodium Chloride 0.9% 10 Ml Flush Syringe) 10 ml IV PRN PRN PRN Reason: LINE FLUSH Zinc Sulfate (Zinc Sulfate 220 Mg Cap) 220 mg PO BID [facility] Last Admin: 04/15/21 23:01 Dose: 220 mg Documented by: Review of Systems Constitutional: fatigue, weakness, malaise Respiratory: cough, shortness of breath, dyspnea on exertion, congestion, pain on inspiration Physical Examination Vital signs: Vital Signs Temp Pulse Resp BP Pulse Ox 98.3 F 84 22 86/62 86 04/14/21 12:20 04/14/21 12:20 04/14/21 12:20 04/14/21 12:20 04/14/21 12:20 General appearance: alert, other (mild distress) Eyes: non-icteric ENT: oropharynx moist Neck: supple Effort: normal Ascultation: Bilateral: other (decreased bs at both bases) Results - Laboratory Findings CBC and BMP: 04/15/21 04:11 04/15/21 04:11 PT/INR, D-dimer D-Dimer 986.33 ng/mlDDU (0-234) H 04/14/21 12:51 Abnormal lab findings: Abnormal Labs 04/14/21 04/14/21 04/14/21 12:51 12:51 12:51 WBC 3.3 L RBC 5.04 H MCH 26 L RDW 21.6 H Lymphocytes % (Manual) Lymphocytes # (Manual) 0.8 L D-Dimer 986.33 H Potassium 3.4 L Chloride 96.1 L BUN 6 L Creatinine Glucose Calcium 7.9 L Ferritin AST 56 H Lactate Dehydrogenase 505 H C-Reactive Protein 16.80 H Albumin 3.8 L Coronavirus (PCR) 04/14/21 04/15/21 04/15/21 12:51 04:11 04:11 WBC 3.3 L RBC MCH 26 L RDW 19.1 H Lymphocytes % (Manual) 11.0 L Lymphocytes # (Manual) 0.4 L D-Dimer Potassium Chloride BUN Creatinine 0.5 L Glucose 191 H Calcium 7.5 L Ferritin 308.5 H AST Lactate Dehydrogenase C-Reactive Protein Albumin Coronavirus (PCR) 04/15/21 08:00 WBC RBC MCH RDW Lymphocytes % (Manual) Lymphocytes # (Manual) D-Dimer Potassium Chloride BUN Creatinine Glucose Calcium Ferritin AST Lactate Dehydrogenase C-Reactive Protein Albumin Coronavirus (PCR) Positive A - Diagnostic Findings Chest x-ray: report reviewed, image reviewed CT scan - chest: report reviewed, image reviewed Assessment and Plan - Patient Problems (1) Leukopenia Current Visit: Yes Status: Acute (2) Acute respiratory failure with hypoxia Current Visit: Yes Status: Acute (3) COVID-19 vaccination not done Current Visit: Yes Status: Acute (4) Coronavirus infection Current Visit: Yes Status: Acute (5) Pneumonia Current Visit: Yes Status: Acute
[2021-04-16 08:56] LABS: BUN/Creatinine Ratio 8; Blood Urea Nitrogen 4 mg/dL (7-17); Calcium 8.4 mg/dL (8.4-10.2); Hemolysis Index 12
[2021-04-16] MEDS: CHOLECALCIFEROL (VIT D3) 1000 UNIT (25 mcg) TAB PO SCH (09:19)
[2021-04-16] MEDS: FAMOTIDINE 20 MG TAB PO SCH ×2 (09:19→21:48)
[2021-04-16] MEDS: ZINC SULFATE 220 MG CAP PO SCH ×2 (09:19→21:48)
[2021-04-16] MEDS: ASCORBIC ACID 500 MG TAB PO SCH ×2 (09:20→21:48)
[2021-04-16] MEDS: HEPARIN 5,000 UNIT/1 ML VIAL SUB-Q SCH ×2 (09:22→21:48)
[2021-04-16 09:41] LABS: Hemoglobin 11.8 gm/dl (10.1-14.3); Red Blood Count 4.74 M/mm3 (3.65-5.03)
[2021-04-16 09:42] LABS: Mean Corpuscular HGB Conc 31 % (30-34); Mean Corpuscular Volume 80 fl (79-97); Platelet Count 268 K/mm3 (140-440); Red Cell Distribution Width 21.3 % (13.2-15.2)
--- NOTE | 2021-04-16 11:30 | Progress Note ---
Assessment and Plan Assessment and plan: 60-year-old female with no significant past medical history who presented with shortness of breath after COVID-19 diagnosis a week ago. Found to be in acute hypoxic respiratory failure. CT was negative for PE, but shows bilateral pneumonia. Currently on 8 L. Guarded prognosis. #Acute hypoxic respiratory failure #COVID-19 pneumonia #Community-acquired pneumonia -COVID-19 PCR positive, patient reports testing positive a week ago at [facility] -CTA negative for PE, shows bilateral opacities with super imposed bilateral lower lobe consolidations -To new supplemental O2, will wean as able -Maintain oxygen saturations greater than 90% -Continue azithromycin and Rocephin -Dexamethasone x10 days -Remdesivir started, will complete 5 dose course -Infectious disease and Pulmonology consulted, assistance appreciated -Encouraged proning #Leukopenia-resolved -Likely secondary to infection #Splenic artery aneurysm -Incidental finding on CT -1.8 x 1.9 cm in size -will need outpatient surveillance Disposition Plan: Continue medical management Total Time Spent with Patient (Minutes): 20 minutes History Interval history: Increased O2 requirements overnight. Currently on 15 L salter cannula. Communicated with patient via [employer] phone medical delivery technician. Has mild headache and occasional cough. No other complaints at this time. Hospitalist Physical - Physical exam Narrative exam: GENERAL: Well-developed well-nourished. Sitting up in bed, no acute distress. HEENT: NC @ 15LPM. CHEST/LUNGS: Decreased breath sounds bilaterally. HEART/CARDIOVASCULAR: RRR. No murmur, rubs or gallops appreciated. ABDOMEN: +BS. NT/ND. NEURO: No focal motor deficit. Follows all commands. EXTREMITIES: No cyanosis, clubbing or edema. PSYCH: Cooperative. - Constitutional Vitals: Temp Pulse Resp BP Pulse Ox 98.1 F 80 16 134/57 89 04/16/21 00:26 04/16/21 00:26 04/16/21 00:26 04/16/21 00:26 04/16/21 00:26 General appearance: Present: mild distress Results - Labs CBC & Chem 7: 04/16/21 07:11 04/16/21 07:11 Labs: Laboratory Last Values WBC 7.7 K/mm3 (4.5-11.0) 04/16/21 07:11 RBC 4.74 M/mm3 (3.65-5.03) 04/16/21 07:11 Hgb 11.8 gm/dl (10.1-14.3) 04/16/21 07:11 Hct 38.0 % (30.3-42.9) 04/16/21 07:11 MCV 80 fl (79-97) 04/16/21 07:11 MCH 25 pg (28-32) L 04/16/21 07:11 MCHC 31 % (30-34) 04/16/21 07:11 RDW 21.3 % (13.2-15.2) H 04/16/21 07:11 Plt Count 268 K/mm3 (140-440) 04/16/21 07:11 Add Manual Diff Complete 04/15/21 04:11 Total Counted 100 04/15/21 04:11 Seg Neuts % (Manual) 67.0 % (40.0-70.0) 04/15/21 04:11 Band Neutrophils % 11.0 % 04/15/21 04:11 Lymphocytes % (Manual) 11.0 % (13.4-35.0) L 04/15/21 04:11 Reactive Lymphs % (Man) 1.0 % 04/15/21 04:11 Monocytes % (Manual) 7.0 % (0.0-7.3) 04/15/21 04:11 Basophils % (Manual) 1.0 % (0.0-1.8) 04/15/21 04:11 Myelocytes % 1.0 % 04/15/21 04:11 Promyelocytes % 1.0 % 04/15/21 04:11 Nucleated RBC % Not Reportable 04/15/21 04:11 Seg Neutrophils # Man 2.2 K/mm3 (1.8-7.7) 04/15/21 04:11 Band Neutrophils # 0.4 K/mm3 04/15/21 04:11 Lymphocytes # (Manual) 0.4 K/mm3 (1.2-5.4) L 04/15/21 04:11 Abs React Lymphs (Man) 0.0 K/mm3 04/15/21 04:11 Monocytes # (Manual) 0.2 K/mm3 (0.0-0.8) 04/15/21 04:11 Eosinophils # (Manual) 0.0 K/mm3 (0.0-0.4) 04/15/21 04:11 Basophils # (Manual) 0.0 K/mm3 (0.0-0.1) 04/15/21 04:11 Metamyelocytes # 0.0 K/mm3 04/15/21 04:11 Myelocytes # 0.0 K/mm3 04/15/21 04:11 Promyelocytes # 0.0 K/mm3 04/15/21 04:11 Blast Cells # 0.0 K/mm3 04/15/21 04:11 WBC Morphology Not Reportable 04/15/21 04:11 Hypersegmented Neuts Not Reportable 04/15/21 04:11 Hyposegmented Neuts Not Reportable 04/15/21 04:11 Hypogranular Neuts Not Reportable 04/15/21 04:11 Smudge Cells Not Reportable 04/15/21 04:11 Toxic Granulation Not Reportable 04/15/21 04:11 Toxic Vacuolation Not Reportable 04/15/21 04:11 Dohle Bodies Not Reportable 04/15/21 04:11 Pelger-Huet Anomaly Not Reportable 04/15/21 04:11 Edelmira Rods Not Reportable 04/15/21 04:11 Platelet Estimate Consistent w auto 04/15/21 04:11 Clumped Platelets Not Reportable 04/15/21 04:11 Plt Clumps, EDTA Not Reportable 04/15/21 04:11 Large Platelets Few 04/15/21 04:11 Giant Platelets Not Reportable 04/15/21 04:11 Platelet Satelliting Not Reportable 04/15/21 04:11 Plt Morphology Comment Not Reportable 04/15/21 04:11 RBC Morphology Not Reportable 04/15/21 04:11 Dimorphic RBCs Not Reportable 04/15/21 04:11 Polychromasia Not Reportable 04/15/21 04:11 Hypochromasia 1+ 04/15/21 04:11 Poikilocytosis Not Reportable 04/15/21 04:11 Anisocytosis Not Reportable 04/15/21 04:11 Microcytosis Not Reportable 04/15/21 04:11 Macrocytosis Not Reportable 04/15/21 04:11 Spherocytes Not Reportable 04/15/21 04:11 Pappenheimer Bodies Not Reportable 04/15/21 04:11 Sickle Cells Not Reportable 04/15/21 04:11 Target Cells Not Reportable 04/15/21 04:11 Tear Drop Cells Not Reportable 04/15/21 04:11 Ovalocytes Not Reportable 04/15/21 04:11 Helmet Cells Not Reportable 04/15/21 04:11 Khan-Perdido Bodies Not Reportable 04/15/21 04:11 [place] Rings Not Reportable 04/15/21 04:11 Coy Cells Not Reportable 04/15/21 04:11 Bite Cells Not Reportable 04/15/21 04:11 Crenated Cell Not Reportable 04/15/21 04:11 Elliptocytes Not Reportable 04/15/21 04:11 Acanthocytes (Spur) Not Reportable 04/15/21 04:11 Rouleaux Not Reportable 04/15/21 04:11 Hemoglobin C Crystals Not Reportable 04/15/21 04:11 Schistocytes Not Reportable 04/15/21 04:11 Malaria parasites Not Reportable 04/15/21 04:11 Jimmy Bodies Not Reportable 04/15/21 04:11 Hem Pathologist Commnt No 04/15/21 04:11 D-Dimer 986.33 ng/mlDDU (0-234) H 04/14/21 12:51 Sodium 145 mmol/L (137-145) D 04/16/21 07:11 Potassium 3.8 mmol/L (3.6-5.0) 04/16/21 07:11 Chloride 107.0 mmol/L (98-107) 04/16/21 07:11 Carbon Dioxide 26 mmol/L (22-30) 04/16/21 07:11 Anion Gap 16 mmol/L 04/16/21 07:11 BUN 4 mg/dL (7-17) L 04/16/21 07:11 Creatinine 0.5 mg/dL (0.6-1.2) L 04/16/21 07:11 Estimated GFR > 60 ml/min 04/16/21 07:11 BUN/Creatinine Ratio 8 % 04/16/21 07:11 Glucose 317 mg/dL (65-100) H 04/16/21 07:11 Calcium 8.4 mg/dL (8.4-10.2) 04/16/21 07:11 Ferritin 308.5 ng/mL (10.0-200.0) H 04/14/21 12:51 Total Bilirubin 0.40 mg/dL (0.1-1.2) 04/14/21 12:51 Direct Bilirubin < 0.2 mg/dL (0-0.2) 04/14/21 12:51 Indirect Bilirubin 0.2 mg/dL 04/14/21 12:51 AST 56 units/L (5-40) H 04/14/21 12:51 ALT 12 units/L (7-56) 04/14/21 12:51 Alkaline Phosphatase 84 units/L (35-129) 04/14/21 12:51 Lactate Dehydrogenase 505 units/L (91-180) H 04/14/21 12:51 C-Reactive Protein 16.80 mg/dL (0.00-1.30) H 04/14/21 12:51 Total Protein 8.0 g/dL (6.3-8.2) 04/14/21 12:51 Albumin 3.8 g/dL (3.9-5) L 04/14/21 12:51 Albumin/Globulin Ratio 0.9 % 04/14/21 12:51 Procalcitonin 0.09 ng/mL (<0.15) 04/14/21 12:51 Coronavirus (PCR) Positive (Negative) A 04/15/21 08:00 Microbiology: Microbiology 04/14/21 12:51 Peripheral/Venous Blood Culture - Preliminary NO GROWTH AFTER 24 HOURS 04/14/21 12:51 Peripheral/Venous Blood Culture - Preliminary NO GROWTH AFTER 24 HOURS Dick/IV: Voiding Method Toilet Active Medications - Current Medications Current Medications: Generic Name Dose Route Start Last Admin Trade Name Freq PRN Reason Stop Dose Admin Acetaminophen 650 mg 04/14/21 13:59 Acetaminophen 325 Mg Tab PO Q4H PRN Pain MILD(1-3)/Fever >100.5/WEISS Albuterol 2.5 mg 04/14/21 13:59 Albuterol 2.5 Mg/3 Ml Nebu IH Q4HRT PRN Shortness Of Breath Ascorbic Acid 500 mg 04/14/21 22:00 04/16/21 09:20 Ascorbic Acid 500 Mg Tab PO 500 mg BID [facility] Administration Budesonide 0.25 mg 04/16/21 09:15 Budesonide 0.25 Mg/2 Ml Nebu IH Q12HRT [facility] Cholecalciferol 1,000 unit 04/15/21 10:00 04/16/21 09:19 Cholecalciferol (Vit D3) 1000 Unit (25 Mcg) Tab PO 1,000 unit QDAY [facility] Administration Famotidine 20 mg 04/14/21 22:00 04/16/21 09:19 Famotidine 20 Mg Tab PO 20 mg BID [facility] Administration Heparin Sodium (Porcine) 5,000 unit 04/14/21 22:00 04/16/21 09:22 Heparin 5,000 Unit/1 Ml Vial SUB-Q 5,000 unit Q12HR [facility] Administration Hydromorphone HCl 0.5 mg 04/14/21 13:59 Hydromorphone 1 Mg/1 Ml Inj IV Q23H PRN Pain , Severe (7-10) REMDESIVIR 200 mg/ Sodium 250 mls @ 500 mls/hr 04/16/21 12:00 Chloride IV 04/16/21 12:29 ONCE ONE REMDESIVIR 100 mg/ Sodium 250 mls @ 500 mls/hr 04/17/21 21:00 Chloride IV 04/20/21 21:29 Q24HR@2100 [facility] Methylprednisolone Sodium Succinate 40 mg 04/14/21 22:00 04/16/21 05:28 Methylprednisolone Sod Succinate 40 Mg/1 Ml Inj IV 40 mg Q8HR [facility] Administration Ondansetron HCl 4 mg 04/14/21 13:59 Ondansetron 4 Mg/2 Ml Inj IV Q8H PRN Nausea And Vomiting Oxycodone/Acetaminophen 1 tab 04/14/21 13:59 Oxycodone /Acetaminophen 5-325mg Tab PO Q16H PRN Pain, Moderate (4-6) Sodium Chloride 10 ml 04/14/21 22:00 04/16/21 09:19 Sodium Chloride 0.9% 10 Ml Flush Syringe IV 10 ml BID [facility] Administration Sodium Chloride 10 ml 04/14/21 13:59 Sodium Chloride 0.9% 10 Ml Flush Syringe IV PRN PRN LINE FLUSH Sodium Chloride 50 ml 04/16/21 12:00 Sodium Chloride 0.9% 50 Ml Ivpb IV 04/20/21 21:01 Q24HR@2100 [facility] Zinc Sulfate 220 mg 04/14/21 22:00 04/16/21 09:19 Zinc Sulfate 220 Mg Cap PO 220 mg BID [facility] Administration
--- NOTE | 2021-04-16 11:37 | Progress Note ---
Assessment and Plan Cultures: Blood culture no growth so far A/P: 60-year-old female past medical history hypertension admitted with COVID-19 #Severe COVID-19 pneumonia: Patient presented with a week of symptoms, chest x- ray with diffuse bilateral infiltrates, admission O2 sats decreased on room air. Inflammatory markers elevated #Acute hypoxemic respiratory failure: Likely secondary to COVID-19 infection. Currently on 15L salter #Obesity #Leukopenia: Likely secondary to COVID-19 Recs: -Steroids for 10 days -Remdesivir 200 mg IV q day x 1 followed by 100 mg IV q day x 4 days -Obtain q48-72h inflammatory markers - ferritin, Ddimer, CRP, LDH -Given elevated CRP, if requiring HFNC 30L/min ok to give Actemra once -Stopped antibiotics due to normal procalcitonin. -Anticoagulation per hospital protocol -Proning as able Thank you for the consult, we will continue to follow. Dr. Tapia taking over Monday. Abdiel June MD [facility] O: [phone] F: [phone] Subjective Date of service: 04/16/21 Interval history: Afebrile white count normal. Procalcitonin normal. 15 L salter Objective - Exam Narrative Exam: Physical exam deferred to reduce risk of transmission of COVID-19. Please refer to primary team's note. - Constitutional Vitals: Vital Signs Temp Pulse Resp BP Pulse Ox 98.1 F 80 16 134/57 89 04/16/21 00:26 04/16/21 00:26 04/16/21 00:26 04/16/21 00:26 04/16/21 00:26 Temperature -Last 24 Hours Temperature 98.1 F - Labs CBC & Chem 7: 04/16/21 07:11 04/16/21 07:11 Labs: Abnormal lab results 04/15/21 04/16/21 04/16/21 Range/Units 08:00 07:11 07:11 MCH 25 L (28-32) pg RDW 21.3 H (13.2-15.2) % BUN 4 L (7-17) mg/dL Creatinine 0.5 L (0.6-1.2) mg/dL Glucose 317 H (65-100) mg/dL Coronavirus (PCR) Positive A (Negative)
[2021-04-16] MEDS ORDERED: REMDESIVIR 200 MG in SODIUM CHLORIDE 0.9% 250ML 250 ML IV ONE (12:00)
[2021-04-16] MEDS: SODIUM CHLORIDE 0.9% 50 ML IVPB IV SCH (12:15)
[2021-04-16] MEDS: ALBUTEROL 2.5 MG/3 ML NEBU IH PRN (17:51)
[2021-04-16] MEDS: BUDESONIDE 0.25 MG/2 ML NEBU IH SCH ×2 (17:51→20:39)
[2021-04-17] MEDS: methylPREDNISolone Sod Succinate 40 MG/1 ML INJ IV SCH ×3 (05:42→22:25)
[2021-04-17] MEDS: ACETAMINOPHEN 325 MG TAB PO PRN ×2 (05:49→09:31)
[2021-04-17 05:59] LABS: Hematocrit 36.4 % (30.3-42.9); Hemoglobin 11.6 gm/dl (10.1-14.3); Mean Corpuscular HGB Conc 32 % (30-34); Mean Corpuscular Volume 83 fl (79-97); Platelet Count 293 K/mm3 (140-440); Red Blood Count 4.42 M/mm3 (3.65-5.03)
[2021-04-17 06:00] LABS: Red Cell Distribution Width 20.3 % (13.2-15.2)
[2021-04-17 06:14] LABS: Alanine Aminotransferase 19 units/L (7-56); Albumin 3.5 g/dL (3.9-5); Blood Urea Nitrogen 6 mg/dL (7-17); Calcium 8.3 mg/dL (8.4-10.2); Hemolysis Index 8
[2021-04-17 06:16] LABS: BUN/Creatinine Ratio 12
--- NOTE | 2021-04-17 07:26 | Progress Note ---
Assessment and Plan Assessment and plan: 60-year-old female with no significant past medical history who presented with shortness of breath after COVID-19 diagnosis a week ago. Found to be in acute hypoxic respiratory failure. CT was negative for PE, but shows bilateral pneumonia. Currently on 8 L. Guarded prognosis. #Acute hypoxic respiratory failure #COVID-19 pneumonia #Community-acquired pneumonia -COVID-19 PCR positive, patient reports testing positive a week ago at [facility] -CTA negative for PE, shows bilateral opacities with super imposed bilateral lower lobe consolidations -To new supplemental O2, will wean as able -Maintain oxygen saturations greater than 90% -Continue azithromycin and Rocephin -Dexamethasone x10 days -Remdesivir (), will complete 5 dose course -Infectious disease and Pulmonology consulted, assistance appreciated -Encouraged proning #Hyperglycemia -Glucose in 300s -No prior history of diabetes, A1c ordered -started sliding scale insulin with a [facility] Accu-Cheks -Likely steroid-induced -will continue to monitor #Leukopenia-resolved -Likely secondary to infection #Splenic artery aneurysm -Incidental finding on CT -1.8 x 1.9 cm in size -will need outpatient surveillance Disposition Plan: Continue medical management Total Time Spent with Patient (Minutes): 20 minutes History Interval history: Increased O2 requirements overnight. Currently on 10 L salter cannula. 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 Has mild headache, cough and sore throat. No other complaints at this time. Hospitalist Physical - Physical exam Narrative exam: GENERAL: Well-developed well-nourished. Sitting up in bed eating breakfast, no acute distress. HEENT: NC @ 10LPM. CHEST/LUNGS: improved air movement bilaterally HEART/CARDIOVASCULAR: RRR. No murmur, rubs or gallops appreciated. ABDOMEN: +BS. NT/ND. NEURO: No focal motor deficit. Follows all commands. EXTREMITIES: No cyanosis, clubbing or edema. PSYCH: Cooperative. - Constitutional Vitals: Temp Pulse Resp BP Pulse Ox 97.5 F L 83 20 149/83 91 04/17/21 05:12 04/17/21 05:12 04/17/21 06:49 04/17/21 05:12 04/17/21 05:12 General appearance: Present: mild distress Results - Labs CBC & Chem 7: 04/17/21 04:43 04/17/21 04:43 Labs: Laboratory Last Values WBC 10.2 K/mm3 (4.5-11.0) 04/17/21 04:43 RBC 4.42 M/mm3 (3.65-5.03) 04/17/21 04:43 Hgb 11.6 gm/dl (10.1-14.3) 04/17/21 04:43 Hct 36.4 % (30.3-42.9) 04/17/21 04:43 MCV 83 fl (79-97) 04/17/21 04:43 MCH 26 pg (28-32) L 04/17/21 04:43 MCHC 32 % (30-34) 04/17/21 04:43 RDW 20.3 % (13.2-15.2) H 04/17/21 04:43 Plt Count 293 K/mm3 (140-440) 04/17/21 04:43 Add Manual Diff Complete 04/15/21 04:11 Total Counted 100 04/15/21 04:11 Seg Neuts % (Manual) 67.0 % (40.0-70.0) 04/15/21 04:11 Band Neutrophils % 11.0 % 04/15/21 04:11 Lymphocytes % (Manual) 11.0 % (13.4-35.0) L 04/15/21 04:11 Reactive Lymphs % (Man) 1.0 % 04/15/21 04:11 Monocytes % (Manual) 7.0 % (0.0-7.3) 04/15/21 04:11 Basophils % (Manual) 1.0 % (0.0-1.8) 04/15/21 04:11 Myelocytes % 1.0 % 04/15/21 04:11 Promyelocytes % 1.0 % 04/15/21 04:11 Nucleated RBC % Not Reportable 04/15/21 04:11 Seg Neutrophils # Man 2.2 K/mm3 (1.8-7.7) 04/15/21 04:11 Band Neutrophils # 0.4 K/mm3 04/15/21 04:11 Lymphocytes # (Manual) 0.4 K/mm3 (1.2-5.4) L 04/15/21 04:11 Abs React Lymphs (Man) 0.0 K/mm3 04/15/21 04:11 Monocytes # (Manual) 0.2 K/mm3 (0.0-0.8) 04/15/21 04:11 Eosinophils # (Manual) 0.0 K/mm3 (0.0-0.4) 04/15/21 04:11 Basophils # (Manual) 0.0 K/mm3 (0.0-0.1) 04/15/21 04:11 Metamyelocytes # 0.0 K/mm3 04/15/21 04:11 Myelocytes # 0.0 K/mm3 04/15/21 04:11 Promyelocytes # 0.0 K/mm3 04/15/21 04:11 Blast Cells # 0.0 K/mm3 04/15/21 04:11 WBC Morphology Not Reportable 04/15/21 04:11 Hypersegmented Neuts Not Reportable 04/15/21 04:11 Hyposegmented Neuts Not Reportable 04/15/21 04:11 Hypogranular Neuts Not Reportable 04/15/21 04:11 Smudge Cells Not Reportable 04/15/21 04:11 Toxic Granulation Not Reportable 04/15/21 04:11 Toxic Vacuolation Not Reportable 04/15/21 04:11 Dohle Bodies Not Reportable 04/15/21 04:11 Pelger-Huet Anomaly Not Reportable 04/15/21 04:11 Edelmira Rods Not Reportable 04/15/21 04:11 Platelet Estimate Consistent w auto 04/15/21 04:11 Clumped Platelets Not Reportable 04/15/21 04:11 Plt Clumps, EDTA Not Reportable 04/15/21 04:11 Large Platelets Few 04/15/21 04:11 Giant Platelets Not Reportable 04/15/21 04:11 Platelet Satelliting Not Reportable 04/15/21 04:11 Plt Morphology Comment Not Reportable 04/15/21 04:11 RBC Morphology Not Reportable 04/15/21 04:11 Dimorphic RBCs Not Reportable 04/15/21 04:11 Polychromasia Not Reportable 04/15/21 04:11 Hypochromasia 1+ 04/15/21 04:11 Poikilocytosis Not Reportable 04/15/21 04:11 Anisocytosis Not Reportable 04/15/21 04:11 Microcytosis Not Reportable 04/15/21 04:11 Macrocytosis Not Reportable 04/15/21 04:11 Spherocytes Not Reportable 04/15/21 04:11 Pappenheimer Bodies Not Reportable 04/15/21 04:11 Sickle Cells Not Reportable 04/15/21 04:11 Target Cells Not Reportable 04/15/21 04:11 Tear Drop Cells Not Reportable 04/15/21 04:11 Ovalocytes Not Reportable 04/15/21 04:11 Helmet Cells Not Reportable 04/15/21 04:11 Khan-Glencoe Bodies Not Reportable 04/15/21 04:11 Naylor Rings Not Reportable 04/15/21 04:11 Ashley Cells Not Reportable 04/15/21 04:11 Bite Cells Not Reportable 04/15/21 04:11 Crenated Cell Not Reportable 04/15/21 04:11 Elliptocytes Not Reportable 04/15/21 04:11 Acanthocytes (Spur) Not Reportable 04/15/21 04:11 Rouleaux Not Reportable 04/15/21 04:11 Hemoglobin C Crystals Not Reportable 04/15/21 04:11 Schistocytes Not Reportable 04/15/21 04:11 Malaria parasites Not Reportable 04/15/21 04:11 Jimmy Bodies Not Reportable 04/15/21 04:11 Hem Pathologist Commnt No 04/15/21 04:11 D-Dimer 490.01 ng/mlDDU (0-234) H 04/17/21 04:43 Sodium 147 mmol/L (137-145) H 04/17/21 04:43 Potassium 3.7 mmol/L (3.6-5.0) 04/17/21 04:43 Chloride 108.0 mmol/L (98-107) H 04/17/21 04:43 Carbon Dioxide 26 mmol/L (22-30) 04/17/21 04:43 Anion Gap 17 mmol/L 04/17/21 04:43 BUN 6 mg/dL (7-17) L 04/17/21 04:43 Creatinine 0.5 mg/dL (0.6-1.2) L 04/17/21 04:43 Estimated GFR > 60 ml/min 04/17/21 04:43 BUN/Creatinine Ratio 12 % 04/17/21 04:43 Glucose 354 mg/dL (65-100) H 04/17/21 04:43 Calcium 8.3 mg/dL (8.4-10.2) L 04/17/21 04:43 Ferritin 308.5 ng/mL (10.0-200.0) H 04/14/21 12:51 Total Bilirubin 0.20 mg/dL (0.1-1.2) 04/17/21 04:43 Direct Bilirubin < 0.2 mg/dL (0-0.2) 04/14/21 12:51 Indirect Bilirubin 0.2 mg/dL 04/14/21 12:51 AST 65 units/L (5-40) H 04/17/21 04:43 ALT 19 units/L (7-56) 04/17/21 04:43 Alkaline Phosphatase 88 units/L (35-129) 04/17/21 04:43 Lactate Dehydrogenase 408 units/L (91-180) H 04/17/21 04:43 C-Reactive Protein 16.80 mg/dL (0.00-1.30) H 04/14/21 12:51 Total Protein 7.3 g/dL (6.3-8.2) 04/17/21 04:43 Albumin 3.5 g/dL (3.9-5) L 04/17/21 04:43 Albumin/Globulin Ratio 0.9 % 04/17/21 04:43 Procalcitonin 0.09 ng/mL (<0.15) 04/14/21 12:51 Coronavirus (PCR) Positive (Negative) A 04/15/21 08:00 Microbiology: Microbiology 04/14/21 12:51 Peripheral/Venous Blood Culture - Preliminary NO GROWTH AFTER 48 HOURS 04/14/21 12:51 Peripheral/Venous Blood Culture - Preliminary NO GROWTH AFTER 48 HOURS Dick/IV: Voiding Method Toilet Active Medications - Current Medications Current Medications: Generic Name Dose Route Start Last Admin Trade Name Freq PRN Reason Stop Dose Admin Acetaminophen 650 mg 04/14/21 13:59 04/17/21 05:49 Acetaminophen 325 Mg Tab PO 650 mg Q4H PRN Administration Pain MILD(1-3)/Fever >100.5/WEISS Albuterol 2.5 mg 04/14/21 13:59 04/16/21 17:51 Albuterol 2.5 Mg/3 Ml Nebu IH 2.5 mg Q4HRT PRN Administration Shortness Of Breath Ascorbic Acid 500 mg 04/14/21 22:00 04/16/21 21:48 Ascorbic Acid 500 Mg Tab PO 500 mg BID JOJO Administration Budesonide 0.25 mg 04/16/21 09:15 04/16/21 20:39 Budesonide 0.25 Mg/2 Ml Nebu IH Not Given Q12HRT JOJO Cholecalciferol 1,000 unit 04/15/21 10:00 04/16/21 09:19 Cholecalciferol (Vit D3) 1000 Unit (25 Mcg) Tab PO 1,000 unit QDAY JOJO Administration Famotidine 20 mg 04/14/21 22:00 04/16/21 21:48 Famotidine 20 Mg Tab PO 20 mg BID JOJO Administration Heparin Sodium (Porcine) 5,000 unit 04/14/21 22:00 04/16/21 21:48 Heparin 5,000 Unit/1 Ml Vial SUB-Q 5,000 unit Q12HR JOJO Administration Hydromorphone HCl 0.5 mg 04/14/21 13:59 Hydromorphone 1 Mg/1 Ml Inj IV Q23H PRN Pain , Severe (7-10) REMDESIVIR 100 mg/ Sodium 250 mls @ 500 mls/hr 04/17/21 21:00 Chloride IV 04/20/21 21:29 Q24HR@2100 [facility] Methylprednisolone Sodium Succinate 40 mg 04/14/21 22:00 04/17/21 05:42 Methylprednisolone Sod Succinate 40 Mg/1 Ml Inj IV 40 mg Q8HR JOJO Administration Ondansetron HCl 4 mg 04/14/21 13:59 Ondansetron 4 Mg/2 Ml Inj IV Q8H PRN Nausea And Vomiting Oxycodone/Acetaminophen 1 tab 04/14/21 13:59 Oxycodone /Acetaminophen 5-325mg Tab PO Q16H PRN Pain, Moderate (4-6) Sodium Chloride 10 ml 04/14/21 22:00 04/16/21 21:49 Sodium Chloride 0.9% 10 Ml Flush Syringe IV 10 ml BID JOJO Administration Sodium Chloride 10 ml 04/14/21 13:59 Sodium Chloride 0.9% 10 Ml Flush Syringe IV PRN PRN LINE FLUSH Sodium Chloride 50 ml 04/16/21 12:00 04/16/21 12:15 Sodium Chloride 0.9% 50 Ml Ivpb IV 04/20/21 21:01 50 ml Q24HR@2100 JOJO Administration Zinc Sulfate 220 mg 04/14/21 22:00 04/16/21 21:48 Zinc Sulfate 220 Mg Cap PO 220 mg BID JOJO Administration
[2021-04-17] MEDS: BUDESONIDE 0.25 MG/2 ML NEBU IH SCH ×2 (07:59→19:39)
[2021-04-17] MEDS: ALBUTEROL 2.5 MG/3 ML NEBU IH PRN ×2 (07:59→19:39)
[2021-04-17] MEDS ORDERED: DEXTROSE 50% IN WATER (25GM) 50 ML SYRINGE IV PRN (08:00)
[2021-04-17 08:21] LABS: Chol/HDL Ratio 6.78 %
[2021-04-17] MEDS: INSULIN LISPRO 100 UNIT/ML SUB-Q SCH ×4 (09:00→22:26)
[2021-04-17] MEDS: FAMOTIDINE 20 MG TAB PO SCH ×2 (09:13→22:25)
[2021-04-17] MEDS: CHOLECALCIFEROL (VIT D3) 1000 UNIT (25 mcg) TAB PO SCH (09:14)
[2021-04-17] MEDS: ZINC SULFATE 220 MG CAP PO SCH ×2 (09:14→22:25)
[2021-04-17] MEDS: HEPARIN 5,000 UNIT/1 ML VIAL SUB-Q SCH ×2 (09:14→22:25)
[2021-04-17] MEDS: ASCORBIC ACID 500 MG TAB PO SCH ×2 (09:29→22:25)
[2021-04-17] MEDS: REMDESIVIR 100 MG in SODIUM CHLORIDE 0.9% 250ML 250 ML IV SCH (21:29)
[2021-04-17] MEDS: SODIUM CHLORIDE 0.9% 50 ML IVPB IV SCH (21:29)
--- NOTE | 2021-04-17 21:50 | Progress Note ---
Assessment and Plan Imp: 1. Covid-19 2. Viral pneumonia 3. Acute respiratory failure, hypoxia 4. Obesity 5. Leukopenia, better 6. Hypernatremia Rec: 1. On Solumedrol IV 2. Remdesivir 3. Proning 4. Free water intake; monitor sodium 5. DVT PPx; D-dimer decreasing 6. Further plans pending clinical course; prognosis guarded Subjective Date of service: 04/17/21 Principal diagnosis: Covid-19 Interval history: No events. + SOB. On O2 10L [place]. Active Medications Acetaminophen (Acetaminophen 325 Mg Tab) 650 mg PO Q4H PRN PRN Reason: Pain MILD(1-3)/Fever >100.5/WEISS Last Admin: 04/17/21 09:31 Dose: 650 mg Documented by: Albuterol (Albuterol 2.5 Mg/3 Ml Nebu) 2.5 mg IH Q4HRT PRN PRN Reason: Shortness Of Breath Last Admin: 04/17/21 19:39 Dose: 2.5 mg Documented by: Ascorbic Acid (Ascorbic Acid 500 Mg Tab) 500 mg PO BID COUNT INCLUDES THE [facility] Last Admin: 04/17/21 09:29 Dose: 500 mg Documented by: Budesonide (Budesonide 0.25 Mg/2 Ml Nebu) 0.25 mg IH Q12HRT COUNT INCLUDES THE [facility] Last Admin: 04/17/21 19:39 Dose: 0.25 mg Documented by: Cholecalciferol (Cholecalciferol (Vit D3) 1000 Unit (25 Mcg) Tab) 1,000 unit PO QDAY COUNT INCLUDES THE [facility] Last Admin: 04/17/21 09:14 Dose: 1,000 unit Documented by: Dextrose (Dextrose 50% In Water (25gm) 50 Ml Syringe) 50 ml IV Q30MIN PRN; Protocol PRN Reason: Hypoglycemia Famotidine (Famotidine 20 Mg Tab) 20 mg PO BID COUNT INCLUDES THE [facility] Last Admin: 04/17/21 09:13 Dose: 20 mg Documented by: Heparin Sodium (Porcine) (Heparin 5,000 Unit/1 Ml Vial) 5,000 unit SUB-Q Q12HR COUNT INCLUDES THE [facility] Last Admin: 04/17/21 09:14 Dose: 5,000 unit Documented by: Hydromorphone HCl (Hydromorphone 1 Mg/1 Ml Inj) 0.5 mg IV Q23H PRN PRN Reason: Pain , Severe (7-10) REMDESIVIR 100 mg/ Sodium (Chloride) 250 mls @ 500 mls/hr IV Q24HR@2100 COUNT INCLUDES THE [facility] Stop: 04/20/21 21:29 Last Admin: 04/17/21 21:29 Dose: 500 mls/hr Documented by: Insulin Glargine (Insulin Glargine 100 Units/Ml) 10 units SUB-Q QHS COUNT INCLUDES THE [facility] Insulin Human Lispro (Insulin Lispro 100 Unit/Ml) 0 unit SUB-Q ACHS COUNT INCLUDES THE [facility]; Protocol Last Admin: 04/17/21 17:38 Dose: 8 unit Documented by: Methylprednisolone Sodium Succinate (Methylprednisolone Sod Succinate 40 Mg/1 Ml Inj) 40 mg IV Q8HR COUNT INCLUDES THE [facility] Last Admin: 04/17/21 15:32 Dose: 40 mg Documented by: Ondansetron HCl (Ondansetron 4 Mg/2 Ml Inj) 4 mg IV Q8H PRN PRN Reason: Nausea And Vomiting Oxycodone/Acetaminophen (Oxycodone /Acetaminophen 5-325mg Tab) 1 tab PO Q16H PRN PRN Reason: Pain, Moderate (4-6) Sodium Chloride (Sodium Chloride 0.9% 10 Ml Flush Syringe) 10 ml IV BID COUNT INCLUDES THE [facility] Last Admin: 04/17/21 09:11 Dose: 10 ml Documented by: Sodium Chloride (Sodium Chloride 0.9% 10 Ml Flush Syringe) 10 ml IV PRN PRN PRN Reason: LINE FLUSH Sodium Chloride (Sodium Chloride 0.9% 50 Ml Ivpb) 50 ml IV Q24HR@2100 COUNT INCLUDES THE [facility] Stop: 04/20/21 21:01 Last Admin: 04/17/21 21:29 Dose: 50 ml Documented by: Zinc Sulfate (Zinc Sulfate 220 Mg Cap) 220 mg PO BID COUNT INCLUDES THE [facility] Last Admin: 04/17/21 09:14 Dose: 220 mg Documented by: Objective - Exam Narrative Exam: Deferred to decrease transmission of Covid-19 as preserve PPE Vital Signs - 12hr 04/17/21 04/17/21 04/17/21 10:21 12:12 13:14 Temperature 98.5 F Pulse Rate 89 Pulse Rate [ Anterior Bilateral Throughout] Respiratory 16 Rate Respiratory Rate [Anterior Bilateral Throughout] Blood Pressure 155/85 O2 Sat by Pulse 93 98 94 Oximetry 04/17/21 04/17/21 04/17/21 14:32 19:39 21:08 Temperature Pulse Rate Pulse Rate [ 81 Anterior Bilateral Throughout] Respiratory Rate Respiratory 16 Rate [Anterior Bilateral Throughout] Blood Pressure O2 Sat by Pulse 98 94 Oximetry CBC and BMP: 04/17/21 04:43 04/17/21 04:43 ABG, PT/INR, D-dimer: PT/INR, D-dimer D-Dimer 490.01 ng/mlDDU (0-234) H 04/17/21 04:43 Abnormal lab findings: Abnormal Labs 04/14/21 04/14/21 04/14/21 12:51 12:51 12:51 WBC 3.3 L RBC 5.04 H MCH 26 L RDW 21.6 H Lymphocytes % (Manual) Lymphocytes # (Manual) 0.8 L D-Dimer 986.33 H Sodium Potassium 3.4 L Chloride 96.1 L BUN 6 L Creatinine Glucose POC Glucose Hemoglobin A1c Calcium 7.9 L Ferritin AST 56 H Lactate Dehydrogenase 505 H C-Reactive Protein 16.80 H Albumin 3.8 L Triglycerides HDL Cholesterol Coronavirus (PCR) 04/14/21 04/15/21 04/15/21 12:51 04:11 04:11 WBC 3.3 L RBC MCH 26 L RDW 19.1 H Lymphocytes % (Manual) 11.0 L Lymphocytes # (Manual) 0.4 L D-Dimer Sodium Potassium Chloride BUN Creatinine 0.5 L Glucose 191 H POC Glucose Hemoglobin A1c Calcium 7.5 L Ferritin 308.5 H AST Lactate Dehydrogenase C-Reactive Protein Albumin Triglycerides HDL Cholesterol Coronavirus (PCR) 04/15/21 04/16/21 04/16/21 08:00 07:11 07:11 WBC RBC MCH 25 L RDW 21.3 H Lymphocytes % (Manual) Lymphocytes # (Manual) D-Dimer Sodium Potassium Chloride BUN 4 L Creatinine 0.5 L Glucose 317 H POC Glucose Hemoglobin A1c Calcium Ferritin AST Lactate Dehydrogenase C-Reactive Protein Albumin Triglycerides HDL Cholesterol Coronavirus (PCR) Positive A 04/17/21 04/17/21 04/17/21 04:43 04:43 04:43 WBC RBC MCH 26 L RDW 20.3 H Lymphocytes % (Manual) Lymphocytes # (Manual) D-Dimer 490.01 H Sodium 147 H Potassium Chloride 108.0 H BUN 6 L Creatinine 0.5 L Glucose 354 H POC Glucose Hemoglobin A1c Calcium 8.3 L Ferritin AST 65 H Lactate Dehydrogenase 408 H C-Reactive Protein Albumin 3.5 L Triglycerides HDL Cholesterol Coronavirus (PCR) 04/17/21 04/17/21 04/17/21 04:43 04:43 09:41 WBC RBC MCH RDW Lymphocytes % (Manual) Lymphocytes # (Manual) D-Dimer Sodium Potassium Chloride BUN Creatinine Glucose POC Glucose 266 H Hemoglobin A1c 7.1 H Calcium Ferritin AST Lactate Dehydrogenase C-Reactive Protein Albumin Triglycerides 206 H HDL Cholesterol 23 L Coronavirus (PCR) 04/17/21 04/17/21 12:06 17:01 WBC RBC MCH RDW Lymphocytes % (Manual) Lymphocytes # (Manual) D-Dimer Sodium Potassium Chloride BUN Creatinine Glucose POC Glucose 406 H 349 H Hemoglobin A1c Calcium Ferritin AST Lactate Dehydrogenase C-Reactive Protein Albumin Triglycerides HDL Cholesterol Coronavirus (PCR) Chest x-ray: report reviewed, image reviewed CT scan - chest: report reviewed, image reviewed
[2021-04-17] MEDS ORDERED: INSULIN GLARGINE 100 UNITS/ML SUB-Q SCH (22:00)
[2021-04-18] MEDS: methylPREDNISolone Sod Succinate 40 MG/1 ML INJ IV SCH ×3 (05:37→22:27)
[2021-04-18 05:50] LABS: Alanine Aminotransferase 19 units/L (7-56); Albumin 3.4 g/dL (3.9-5); Blood Urea Nitrogen 9 mg/dL (7-17); Calcium 8.1 mg/dL (8.4-10.2); Hemolysis Index 1
[2021-04-18 05:51] LABS: BUN/Creatinine Ratio 18
--- NOTE | 2021-04-18 07:25 | Progress Note ---
Assessment and Plan Assessment and plan: 60-year-old female with no significant past medical history who presented with shortness of breath after COVID-19 diagnosis a week ago. Found to be in acute hypoxic respiratory failure. CT was negative for PE, but shows bilateral pneumonia. Currently on 8 L. Guarded prognosis. #Acute hypoxic respiratory failure #COVID-19 pneumonia #Community-acquired pneumonia -COVID-19 PCR positive, patient reports testing positive at [facility] -CTA negative for PE, shows bilateral opacities with super imposed bilateral lower lobe consolidations -To new supplemental O2, will wean as able -Maintain oxygen saturations greater than 90% -Continue azithromycin and Rocephin -continue steroids x10 days; solumedrol, will taper -Remdesivir (dose 2 of 5 today), will complete 5 dose course -Infectious disease and Pulmonology consulted, assistance appreciated -Encouraged proning #Hyperglycemia #New Onset Type II Diabetes -Glucose in 300s -No prior history of diabetes, A1c 7.1% -lantus 15U QHS while on steriods -continue accuchecks -worsening likely steroid-induced -will continue to monitor #Hypokalemia -K 3.3 -will replete and monitor #Leukopenia-resolved -Likely secondary to infection #Splenic artery aneurysm -Incidental finding on CT -1.8 x 1.9 cm in size -will need outpatient surveillance Disposition Plan: Continue medical management Total Time Spent with Patient (Minutes): 20 minutes History Interval history: No acute events overnight. Currently on 10 L salter cannula. Communicated with patient via blue phone interpreter deaf. Headache has improved, continues to have sore throat. No other complaints. Hospitalist Physical - Physical exam Narrative exam: GENERAL: Well-developed well-nourished. Sitting up in bed watching TV, no acute distress. HEENT: NC @ 10LPM. CHEST/LUNGS: improved air movement bilaterally HEART/CARDIOVASCULAR: RRR. No murmur, rubs or gallops appreciated. ABDOMEN: +BS. NT/ND. NEURO: No focal motor deficit. Follows all commands. EXTREMITIES: No cyanosis, clubbing or edema. PSYCH: Cooperative. - Constitutional Vitals: Temp Pulse Resp BP Pulse Ox 98.0 F 63 20 146/77 95 04/18/21 06:37 04/18/21 06:37 04/18/21 06:37 04/18/21 06:37 04/18/21 06:37 General appearance: Present: mild distress Results - Labs CBC & Chem 7: 04/17/21 04:43 04/18/21 04:35 Labs: Laboratory Last Values WBC 10.2 K/mm3 (4.5-11.0) 04/17/21 04:43 RBC 4.42 M/mm3 (3.65-5.03) 04/17/21 04:43 Hgb 11.6 gm/dl (10.1-14.3) 04/17/21 04:43 Hct 36.4 % (30.3-42.9) 04/17/21 04:43 MCV 83 fl (79-97) 04/17/21 04:43 MCH 26 pg (28-32) L 04/17/21 04:43 MCHC 32 % (30-34) 04/17/21 04:43 RDW 20.3 % (13.2-15.2) H 04/17/21 04:43 Plt Count 293 K/mm3 (140-440) 04/17/21 04:43 Add Manual Diff Complete 04/15/21 04:11 Total Counted 100 04/15/21 04:11 Seg Neuts % (Manual) 67.0 % (40.0-70.0) 04/15/21 04:11 Band Neutrophils % 11.0 % 04/15/21 04:11 Lymphocytes % (Manual) 11.0 % (13.4-35.0) L 04/15/21 04:11 Reactive Lymphs % (Man) 1.0 % 04/15/21 04:11 Monocytes % (Manual) 7.0 % (0.0-7.3) 04/15/21 04:11 Basophils % (Manual) 1.0 % (0.0-1.8) 04/15/21 04:11 Myelocytes % 1.0 % 04/15/21 04:11 Promyelocytes % 1.0 % 04/15/21 04:11 Nucleated RBC % Not Reportable 04/15/21 04:11 Seg Neutrophils # Man 2.2 K/mm3 (1.8-7.7) 04/15/21 04:11 Band Neutrophils # 0.4 K/mm3 04/15/21 04:11 Lymphocytes # (Manual) 0.4 K/mm3 (1.2-5.4) L 04/15/21 04:11 Abs React Lymphs (Man) 0.0 K/mm3 04/15/21 04:11 Monocytes # (Manual) 0.2 K/mm3 (0.0-0.8) 04/15/21 04:11 Eosinophils # (Manual) 0.0 K/mm3 (0.0-0.4) 04/15/21 04:11 Basophils # (Manual) 0.0 K/mm3 (0.0-0.1) 04/15/21 04:11 Metamyelocytes # 0.0 K/mm3 04/15/21 04:11 Myelocytes # 0.0 K/mm3 04/15/21 04:11 Promyelocytes # 0.0 K/mm3 04/15/21 04:11 Blast Cells # 0.0 K/mm3 04/15/21 04:11 WBC Morphology Not Reportable 04/15/21 04:11 Hypersegmented Neuts Not Reportable 04/15/21 04:11 Hyposegmented Neuts Not Reportable 04/15/21 04:11 Hypogranular Neuts Not Reportable 04/15/21 04:11 Smudge Cells Not Reportable 04/15/21 04:11 Toxic Granulation Not Reportable 04/15/21 04:11 Toxic Vacuolation Not Reportable 04/15/21 04:11 Dohle Bodies Not Reportable 04/15/21 04:11 Pelger-Huet Anomaly Not Reportable 04/15/21 04:11 Edelmira Rods Not Reportable 04/15/21 04:11 Platelet Estimate Consistent w auto 04/15/21 04:11 Clumped Platelets Not Reportable 04/15/21 04:11 Plt Clumps, EDTA Not Reportable 04/15/21 04:11 Large Platelets Few 04/15/21 04:11 Giant Platelets Not Reportable 04/15/21 04:11 Platelet Satelliting Not Reportable 04/15/21 04:11 Plt Morphology Comment Not Reportable 04/15/21 04:11 RBC Morphology Not Reportable 04/15/21 04:11 Dimorphic RBCs Not Reportable 04/15/21 04:11 Polychromasia Not Reportable 04/15/21 04:11 Hypochromasia 1+ 04/15/21 04:11 Poikilocytosis Not Reportable 04/15/21 04:11 Anisocytosis Not Reportable 04/15/21 04:11 Microcytosis Not Reportable 04/15/21 04:11 Macrocytosis Not Reportable 04/15/21 04:11 Spherocytes Not Reportable 04/15/21 04:11 Pappenheimer Bodies Not Reportable 04/15/21 04:11 Sickle Cells Not Reportable 04/15/21 04:11 Target Cells Not Reportable 04/15/21 04:11 Tear Drop Cells Not Reportable 04/15/21 04:11 Ovalocytes Not Reportable 04/15/21 04:11 Helmet Cells Not Reportable 04/15/21 04:11 [facility] Bodies Not Reportable 04/15/21 04:11 [place] Rings Not Reportable 04/15/21 04:11 Ashley Cells Not Reportable 04/15/21 04:11 Bite Cells Not Reportable 04/15/21 04:11 Crenated Cell Not Reportable 04/15/21 04:11 Elliptocytes Not Reportable 04/15/21 04:11 Acanthocytes (Spur) Not Reportable 04/15/21 04:11 Rouleaux Not Reportable 04/15/21 04:11 Hemoglobin C Crystals Not Reportable 04/15/21 04:11 Schistocytes Not Reportable 04/15/21 04:11 Malaria parasites Not Reportable 04/15/21 04:11 Jimmy Bodies Not Reportable 04/15/21 04:11 Hem Pathologist Commnt No 04/15/21 04:11 D-Dimer 490.01 ng/mlDDU (0-234) H 04/17/21 04:43 Sodium 146 mmol/L (137-145) H 04/18/21 04:35 Potassium 3.3 mmol/L (3.6-5.0) L 04/18/21 04:35 Chloride 105.0 mmol/L (98-107) 04/18/21 04:35 Carbon Dioxide 29 mmol/L (22-30) 04/18/21 04:35 Anion Gap 15 mmol/L 04/18/21 04:35 BUN 9 mg/dL (7-17) 04/18/21 04:35 Creatinine 0.5 mg/dL (0.6-1.2) L 04/18/21 04:35 Estimated GFR > 60 ml/min 04/18/21 04:35 BUN/Creatinine Ratio 18 % 04/18/21 04:35 Glucose 340 mg/dL (65-100) H 04/18/21 04:35 POC Glucose 374 mg/dL (70-105) H 04/17/21 22:11 Hemoglobin A1c 7.1 % (4-6) H 04/17/21 04:43 Calcium 8.1 mg/dL (8.4-10.2) L 04/18/21 04:35 Ferritin 308.5 ng/mL (10.0-200.0) H 04/14/21 12:51 Total Bilirubin 0.20 mg/dL (0.1-1.2) 04/18/21 04:35 Direct Bilirubin < 0.2 mg/dL (0-0.2) 04/14/21 12:51 Indirect Bilirubin 0.2 mg/dL 04/14/21 12:51 AST 45 units/L (5-40) H 04/18/21 04:35 ALT 19 units/L (7-56) 04/18/21 04:35 Alkaline Phosphatase 79 units/L (35-129) 04/18/21 04:35 Lactate Dehydrogenase 408 units/L (91-180) H 04/17/21 04:43 C-Reactive Protein 16.80 mg/dL (0.00-1.30) H 04/14/21 12:51 Total Protein 6.8 g/dL (6.3-8.2) 04/18/21 04:35 Albumin 3.4 g/dL (3.9-5) L 04/18/21 04:35 Albumin/Globulin Ratio 1.0 % 04/18/21 04:35 Triglycerides 206 mg/dL (2-149) H 04/17/21 04:43 Cholesterol 156 mg/dL (50-199) 04/17/21 04:43 LDL Cholesterol Direct 91 mg/dL (50-130) 04/17/21 04:43 HDL Cholesterol 23 mg/dL (40-59) L 04/17/21 04:43 Cholesterol/HDL Ratio 6.78 % 04/17/21 04:43 Procalcitonin 0.09 ng/mL (<0.15) 04/14/21 12:51 Coronavirus (PCR) Positive (Negative) A 04/15/21 08:00 Microbiology: Microbiology 04/14/21 12:51 Peripheral/Venous Blood Culture - Preliminary NO GROWTH AFTER 72 HOURS 04/14/21 12:51 Peripheral/Venous Blood Culture - Preliminary NO GROWTH AFTER 72 HOURS Dick/IV: Voiding Method Toilet Active Medications - Current Medications Current Medications: Generic Name Dose Route Start Last Admin Trade Name Freq PRN Reason Stop Dose Admin Acetaminophen 650 mg 04/14/21 13:59 04/17/21 09:31 Acetaminophen 325 Mg Tab PO 650 mg Q4H PRN Administration Pain MILD(1-3)/Fever >100.5/WEISS Albuterol 2.5 mg 04/14/21 13:59 04/17/21 19:39 Albuterol 2.5 Mg/3 Ml Nebu IH 2.5 mg Q4HRT PRN Administration Shortness Of Breath Ascorbic Acid 500 mg 04/14/21 22:00 04/17/21 22:25 Ascorbic Acid 500 Mg Tab PO 500 mg BID JOJO Administration Budesonide 0.25 mg 04/16/21 09:15 04/17/21 19:39 Budesonide 0.25 Mg/2 Ml Nebu IH 0.25 mg Q12HRT JOJO Administration Cholecalciferol 1,000 unit 04/15/21 10:00 04/17/21 09:14 Cholecalciferol (Vit D3) 1000 Unit (25 Mcg) Tab PO 1,000 unit QDAY JOJO Administration Dextrose 50 ml 04/17/21 08:00 Dextrose 50% In Water (25gm) 50 Ml Syringe IV Q30MIN PRN Hypoglycemia Protocol Famotidine 20 mg 04/14/21 22:00 04/17/21 22:25 Famotidine 20 Mg Tab PO 20 mg BID JOJO Administration Heparin Sodium (Porcine) 5,000 unit 04/14/21 22:00 04/17/21 22:25 Heparin 5,000 Unit/1 Ml Vial SUB-Q 5,000 unit Q12HR JOJO Administration Hydromorphone HCl 0.5 mg 04/14/21 13:59 Hydromorphone 1 Mg/1 Ml Inj IV Q23H PRN Pain , Severe (7-10) REMDESIVIR 100 mg/ Sodium 250 mls @ 500 mls/hr 04/17/21 21:00 04/17/21 21:29 Chloride IV 04/20/21 21:29 500 mls/hr Q24HR@2100 JOJO Administration Insulin Glargine 15 units 04/18/21 07:24 Insulin Glargine 100 Units/Ml SUB-Q QHS [facility] Insulin Glargine 5 units 04/18/21 07:23 Insulin Glargine 100 Units/Ml SUB-Q 04/18/21 07:24 ONCE ONE Insulin Human Lispro 0 unit 04/17/21 08:00 04/17/21 22:26 Insulin Lispro 100 Unit/Ml SUB-Q 8 unit ACHS [facility] Administration Protocol Methylprednisolone Sodium Succinate 40 mg 04/14/21 22:00 04/18/21 05:37 Methylprednisolone Sod Succinate 40 Mg/1 Ml Inj IV 40 mg Q8HR JOJO Administration Ondansetron HCl 4 mg 04/14/21 13:59 Ondansetron 4 Mg/2 Ml Inj IV Q8H PRN Nausea And Vomiting Oxycodone/Acetaminophen 1 tab 04/14/21 13:59 Oxycodone /Acetaminophen 5-325mg Tab PO Q16H PRN Pain, Moderate (4-6) Sodium Chloride 10 ml 04/14/21 22:00 04/17/21 22:26 Sodium Chloride 0.9% 10 Ml Flush Syringe IV 10 ml BID JOJO Administration Sodium Chloride 10 ml 04/14/21 13:59 Sodium Chloride 0.9% 10 Ml Flush Syringe IV PRN PRN LINE FLUSH Sodium Chloride 50 ml 04/16/21 12:00 04/17/21 21:29 Sodium Chloride 0.9% 50 Ml Ivpb IV 04/20/21 21:01 50 ml Q24HR@2100 JOJO Administration Zinc Sulfate 220 mg 04/14/21 22:00 04/17/21 22:25 Zinc Sulfate 220 Mg Cap PO 220 mg BID JOJO Administration
[2021-04-18] MEDS ORDERED: INSULIN GLARGINE 100 UNITS/ML SUB-Q SCH ×2 (08:00→22:00)
[2021-04-18] MEDS: BUDESONIDE 0.25 MG/2 ML NEBU IH SCH ×2 (08:11→19:49)
[2021-04-18] MEDS: INSULIN LISPRO 100 UNIT/ML SUB-Q SCH ×4 (08:17→22:29)
[2021-04-18] MEDS: HEPARIN 5,000 UNIT/1 ML VIAL SUB-Q SCH ×2 (10:11→22:28)
[2021-04-18] MEDS: FAMOTIDINE 20 MG TAB PO SCH ×2 (10:13→22:28)
[2021-04-18] MEDS: CHOLECALCIFEROL (VIT D3) 1000 UNIT (25 mcg) TAB PO SCH (10:13)
[2021-04-18] MEDS: ZINC SULFATE 220 MG CAP PO SCH ×2 (10:14→22:28)
[2021-04-18] MEDS: ASCORBIC ACID 500 MG TAB PO SCH ×2 (10:14→22:28)
--- NOTE | 2021-04-18 21:17 | Progress Note ---
Assessment and Plan Imp: 1. Covid-19 2. Viral pneumonia 3. Acute respiratory failure, hypoxia 4. Obesity 5. Leukopenia, better 6. Hypernatremia Rec: 1. On Solumedrol IV 2. Remdesivir 3. Proning 4. Free water intake; monitor sodium 5. DVT PPx; D-dimer decreasing 6. Further plans pending clinical course; prognosis guarded Subjective Date of service: 04/18/21 Principal diagnosis: Covid-19 Interval history: No events. + SOB. On O2 10L Salter. Active Medications Acetaminophen (Acetaminophen 325 Mg Tab) 650 mg PO Q4H PRN PRN Reason: Pain MILD(1-3)/Fever >100.5/WEISS Last Admin: 04/17/21 09:31 Dose: 650 mg Documented by: Albuterol (Albuterol 2.5 Mg/3 Ml Nebu) 2.5 mg IH Q4HRT PRN PRN Reason: Shortness Of Breath Last Admin: 04/17/21 19:39 Dose: 2.5 mg Documented by: Ascorbic Acid (Ascorbic Acid 500 Mg Tab) 500 mg PO BID [facility] Last Admin: 04/18/21 10:14 Dose: 500 mg Documented by: Budesonide (Budesonide 0.25 Mg/2 Ml Nebu) 0.25 mg IH Q12HRT [facility] Last Admin: 04/18/21 19:49 Dose: 0.25 mg Documented by: Cholecalciferol (Cholecalciferol (Vit D3) 1000 Unit (25 Mcg) Tab) 1,000 unit PO QDAY [facility] Last Admin: 04/18/21 10:13 Dose: 1,000 unit Documented by: Dextrose (Dextrose 50% In Water (25gm) 50 Ml Syringe) 50 ml IV Q30MIN PRN; Protocol PRN Reason: Hypoglycemia Famotidine (Famotidine 20 Mg Tab) 20 mg PO BID [facility] Last Admin: 04/18/21 10:13 Dose: 20 mg Documented by: Heparin Sodium (Porcine) (Heparin 5,000 Unit/1 Ml Vial) 5,000 unit SUB-Q Q12HR [facility] Last Admin: 04/18/21 10:11 Dose: 5,000 unit Documented by: Hydromorphone HCl (Hydromorphone 1 Mg/1 Ml Inj) 0.5 mg IV Q23H PRN PRN Reason: Pain , Severe (7-10) REMDESIVIR 100 mg/ Sodium (Chloride) 250 mls @ 500 mls/hr IV Q24HR@2100 [facility] Stop: 04/20/21 21:29 Last Admin: 04/17/21 21:29 Dose: 500 mls/hr Documented by: Insulin Glargine (Insulin Glargine 100 Units/Ml) 15 units SUB-Q QHS [facility] Insulin Human Lispro (Insulin Lispro 100 Unit/Ml) 0 unit SUB-Q ACHS [facility]; Protocol Last Admin: 04/18/21 18:11 Dose: 8 unit Documented by: Methylprednisolone Sodium Succinate (Methylprednisolone Sod Succinate 40 Mg/1 Ml Inj) 40 mg IV Q12HR [facility] Ondansetron HCl (Ondansetron 4 Mg/2 Ml Inj) 4 mg IV Q8H PRN PRN Reason: Nausea And Vomiting Oxycodone/Acetaminophen (Oxycodone /Acetaminophen 5-325mg Tab) 1 tab PO Q16H PRN PRN Reason: Pain, Moderate (4-6) Last Admin: 04/18/21 10:10 Dose: 1 tab Documented by: Sodium Chloride (Sodium Chloride 0.9% 10 Ml Flush Syringe) 10 ml IV BID [facility] Last Admin: 04/18/21 10:13 Dose: 10 ml Documented by: Sodium Chloride (Sodium Chloride 0.9% 10 Ml Flush Syringe) 10 ml IV PRN PRN PRN Reason: LINE FLUSH Sodium Chloride (Sodium Chloride 0.9% 50 Ml Ivpb) 50 ml IV Q24HR@2100 [facility] Stop: 04/20/21 21:01 Last Admin: 04/17/21 21:29 Dose: 50 ml Documented by: Zinc Sulfate (Zinc Sulfate 220 Mg Cap) 220 mg PO BID [facility] Last Admin: 04/18/21 10:14 Dose: 220 mg Documented by: Objective - Exam Narrative Exam: Deferred to decrease transmission and preserve PPE. Reviewed IMS exam in chart. Vital Signs - 12hr 04/18/21 04/18/21 04/18/21 10:10 11:32 13:38 Temperature 98.3 F Pulse Rate 87 Pulse Rate [ Anterior Bilateral Throughout] Respiratory 20 20 Rate Respiratory Rate [Anterior Bilateral Throughout] Blood Pressure 140/73 O2 Sat by Pulse 96 97 Oximetry 04/18/21 04/18/21 16:29 19:53 Temperature 98.5 F Pulse Rate 74 Pulse Rate [ 81 Anterior Bilateral Throughout] Respiratory 18 Rate Respiratory 16 Rate [Anterior Bilateral Throughout] Blood Pressure 137/72 O2 Sat by Pulse 96 Oximetry CBC and BMP: 04/17/21 04:43 04/18/21 04:35 ABG, PT/INR, D-dimer: PT/INR, D-dimer D-Dimer 490.01 ng/mlDDU (0-234) H 04/17/21 04:43 Abnormal lab findings: Abnormal Labs 04/14/21 04/14/21 04/14/21 12:51 12:51 12:51 WBC 3.3 L RBC 5.04 H MCH 26 L RDW 21.6 H Lymphocytes % (Manual) Lymphocytes # (Manual) 0.8 L D-Dimer 986.33 H Sodium Potassium 3.4 L Chloride 96.1 L BUN 6 L Creatinine Glucose POC Glucose Hemoglobin A1c Calcium 7.9 L Ferritin AST 56 H Lactate Dehydrogenase 505 H C-Reactive Protein 16.80 H Albumin 3.8 L Triglycerides HDL Cholesterol Coronavirus (PCR) 04/14/21 04/15/21 04/15/21 12:51 04:11 04:11 WBC 3.3 L RBC MCH 26 L RDW 19.1 H Lymphocytes % (Manual) 11.0 L Lymphocytes # (Manual) 0.4 L D-Dimer Sodium Potassium Chloride BUN Creatinine 0.5 L Glucose 191 H POC Glucose Hemoglobin A1c Calcium 7.5 L Ferritin 308.5 H AST Lactate Dehydrogenase C-Reactive Protein Albumin Triglycerides HDL Cholesterol Coronavirus (PCR) 04/15/21 04/16/21 04/16/21 08:00 07:11 07:11 WBC RBC MCH 25 L RDW 21.3 H Lymphocytes % (Manual) Lymphocytes # (Manual) D-Dimer Sodium Potassium Chloride BUN 4 L Creatinine 0.5 L Glucose 317 H POC Glucose Hemoglobin A1c Calcium Ferritin AST Lactate Dehydrogenase C-Reactive Protein Albumin Triglycerides HDL Cholesterol Coronavirus (PCR) Positive A 04/17/21 04/17/21 04/17/21 04:43 04:43 04:43 WBC RBC MCH 26 L RDW 20.3 H Lymphocytes % (Manual) Lymphocytes # (Manual) D-Dimer 490.01 H Sodium 147 H Potassium Chloride 108.0 H BUN 6 L Creatinine 0.5 L Glucose 354 H POC Glucose Hemoglobin A1c Calcium 8.3 L Ferritin AST 65 H Lactate Dehydrogenase 408 H C-Reactive Protein Albumin 3.5 L Triglycerides HDL Cholesterol Coronavirus (PCR) 04/17/21 04/17/21 04/17/21 04:43 04:43 09:41 WBC RBC MCH RDW Lymphocytes % (Manual) Lymphocytes # (Manual) D-Dimer Sodium Potassium Chloride BUN Creatinine Glucose POC Glucose 266 H Hemoglobin A1c 7.1 H Calcium Ferritin AST Lactate Dehydrogenase C-Reactive Protein Albumin Triglycerides 206 H HDL Cholesterol 23 L Coronavirus (PCR) 04/17/21 04/17/21 04/17/21 12:06 17:01 22:11 WBC RBC MCH RDW Lymphocytes % (Manual) Lymphocytes # (Manual) D-Dimer Sodium Potassium Chloride BUN Creatinine Glucose POC Glucose 406 H 349 H 374 H Hemoglobin A1c Calcium Ferritin AST Lactate Dehydrogenase C-Reactive Protein Albumin Triglycerides HDL Cholesterol Coronavirus (PCR) 04/18/21 04/18/21 04/18/21 04:35 08:06 11:48 WBC RBC MCH RDW Lymphocytes % (Manual) Lymphocytes # (Manual) D-Dimer Sodium 146 H Potassium 3.3 L Chloride BUN Creatinine 0.5 L Glucose 340 H POC Glucose 280 H 359 H Hemoglobin A1c Calcium 8.1 L Ferritin AST 45 H Lactate Dehydrogenase C-Reactive Protein Albumin 3.4 L Triglycerides HDL Cholesterol Coronavirus (PCR) 04/18/21 04/18/21 16:27 21:04 WBC RBC MCH RDW Lymphocytes % (Manual) Lymphocytes # (Manual) D-Dimer Sodium Potassium Chloride BUN Creatinine Glucose POC Glucose 332 H 358 H Hemoglobin A1c Calcium Ferritin AST Lactate Dehydrogenase C-Reactive Protein Albumin Triglycerides HDL Cholesterol Coronavirus (PCR) Chest x-ray: report reviewed, image reviewed
[2021-04-18] MEDS: SODIUM CHLORIDE 0.9% 50 ML IVPB IV SCH (22:28)
[2021-04-18] MEDS: REMDESIVIR 100 MG in SODIUM CHLORIDE 0.9% 250ML 250 ML IV SCH (22:28)
[2021-04-18] MEDS: ACETAMINOPHEN 325 MG TAB PO PRN (22:29)
--- NOTE | 2021-04-19 07:47 | Progress Note ---
Assessment and Plan Assessment and plan: 60-year-old female with no significant past medical history who presented with shortness of breath after COVID-19 diagnosis a week ago. Found to be in acute hypoxic respiratory failure. CT was negative for PE, but shows bilateral pneumonia. Currently on 10L. Stable. #Acute hypoxic respiratory failure #COVID-19 pneumonia #Community-acquired pneumonia -CTA negative for PE, shows bilateral opacities with super imposed bilateral lower lobe consolidations -currently on 10L supplemental O2, will wean as able -Maintain oxygen saturations greater than 90% -azithromycin and Rocephin discontinued -continue steroids x10 days; solumedrol, will taper -Remdesivir (dose 3 of 5 today), will complete 5 dose course -Infectious disease and Pulmonology consulted, assistance appreciated -Encouraged proning #Hyperglycemia #New Onset Type II Diabetes -No prior history of diabetes, A1c 7.1% -required 18 U of SSI over last 24hrs -will increase lantus to 20U QHS and will add 3U aspart with meals -worsening likely steroid-induced -will require metformin at discharge #Hypokalemia -will replete and monitor #Leukopenia-resolved -Likely secondary to infection #Splenic artery aneurysm -Incidental finding on CT -1.8 x 1.9 cm in size -will need outpatient surveillance Disposition Plan: continue medical management Total Time Spent with Patient (Minutes): 20 minutes History Interval history: No acute events overnight. Currently on 10 L salter cannula. Communicated with patient via blue phone metal polisher. Continues to have sore throat, otherwise no complaints. Hospitalist Physical - Physical exam Narrative exam: GENERAL: Well-developed well-nourished. Sitting up in bed watching TV, no acute distress. HEENT: NC @ 10LPM. CHEST/LUNGS: improved air movement bilaterally HEART/CARDIOVASCULAR: RRR. No murmur, rubs or gallops appreciated. ABDOMEN: +BS. NT/ND. NEURO: No focal motor deficit. Follows all commands. EXTREMITIES: No cyanosis, clubbing or edema. PSYCH: Cooperative. - Constitutional Vitals: Temp Pulse Resp BP Pulse Ox 98.5 F 62 16 135/58 98 04/19/21 03:57 04/19/21 03:57 04/19/21 03:57 04/19/21 03:57 04/19/21 03:57 General appearance: Present: mild distress Results - Labs CBC & Chem 7: 04/17/21 04:43 04/19/21 06:51 Labs: Laboratory Last Values WBC 10.2 K/mm3 (4.5-11.0) 04/17/21 04:43 RBC 4.42 M/mm3 (3.65-5.03) 04/17/21 04:43 Hgb 11.6 gm/dl (10.1-14.3) 04/17/21 04:43 Hct 36.4 % (30.3-42.9) 04/17/21 04:43 MCV 83 fl (79-97) 04/17/21 04:43 MCH 26 pg (28-32) L 04/17/21 04:43 MCHC 32 % (30-34) 04/17/21 04:43 RDW 20.3 % (13.2-15.2) H 04/17/21 04:43 Plt Count 293 K/mm3 (140-440) 04/17/21 04:43 Add Manual Diff Complete 04/15/21 04:11 Total Counted 100 04/15/21 04:11 Seg Neuts % (Manual) 67.0 % (40.0-70.0) 04/15/21 04:11 Band Neutrophils % 11.0 % 04/15/21 04:11 Lymphocytes % (Manual) 11.0 % (13.4-35.0) L 04/15/21 04:11 Reactive Lymphs % (Man) 1.0 % 04/15/21 04:11 Monocytes % (Manual) 7.0 % (0.0-7.3) 04/15/21 04:11 Basophils % (Manual) 1.0 % (0.0-1.8) 04/15/21 04:11 Myelocytes % 1.0 % 04/15/21 04:11 Promyelocytes % 1.0 % 04/15/21 04:11 Nucleated RBC % Not Reportable 04/15/21 04:11 Seg Neutrophils # Man 2.2 K/mm3 (1.8-7.7) 04/15/21 04:11 Band Neutrophils # 0.4 K/mm3 04/15/21 04:11 Lymphocytes # (Manual) 0.4 K/mm3 (1.2-5.4) L 04/15/21 04:11 Abs React Lymphs (Man) 0.0 K/mm3 04/15/21 04:11 Monocytes # (Manual) 0.2 K/mm3 (0.0-0.8) 04/15/21 04:11 Eosinophils # (Manual) 0.0 K/mm3 (0.0-0.4) 04/15/21 04:11 Basophils # (Manual) 0.0 K/mm3 (0.0-0.1) 04/15/21 04:11 Metamyelocytes # 0.0 K/mm3 04/15/21 04:11 Myelocytes # 0.0 K/mm3 04/15/21 04:11 Promyelocytes # 0.0 K/mm3 04/15/21 04:11 Blast Cells # 0.0 K/mm3 04/15/21 04:11 WBC Morphology Not Reportable 04/15/21 04:11 Hypersegmented Neuts Not Reportable 04/15/21 04:11 Hyposegmented Neuts Not Reportable 04/15/21 04:11 Hypogranular Neuts Not Reportable 04/15/21 04:11 Smudge Cells Not Reportable 04/15/21 04:11 Toxic Granulation Not Reportable 04/15/21 04:11 Toxic Vacuolation Not Reportable 04/15/21 04:11 Dohle Bodies Not Reportable 04/15/21 04:11 Pelger-Huet Anomaly Not Reportable 04/15/21 04:11 Edelmira Rods Not Reportable 04/15/21 04:11 Platelet Estimate Consistent w auto 04/15/21 04:11 Clumped Platelets Not Reportable 04/15/21 04:11 Plt Clumps, EDTA Not Reportable 04/15/21 04:11 Large Platelets Few 04/15/21 04:11 Giant Platelets Not Reportable 04/15/21 04:11 Platelet Satelliting Not Reportable 04/15/21 04:11 Plt Morphology Comment Not Reportable 04/15/21 04:11 RBC Morphology Not Reportable 04/15/21 04:11 Dimorphic RBCs Not Reportable 04/15/21 04:11 Polychromasia Not Reportable 04/15/21 04:11 Hypochromasia 1+ 04/15/21 04:11 Poikilocytosis Not Reportable 04/15/21 04:11 Anisocytosis Not Reportable 04/15/21 04:11 Microcytosis Not Reportable 04/15/21 04:11 Macrocytosis Not Reportable 04/15/21 04:11 Spherocytes Not Reportable 04/15/21 04:11 Pappenheimer Bodies Not Reportable 04/15/21 04:11 Sickle Cells Not Reportable 04/15/21 04:11 Target Cells Not Reportable 04/15/21 04:11 Tear Drop Cells Not Reportable 04/15/21 04:11 Ovalocytes Not Reportable 04/15/21 04:11 Helmet Cells Not Reportable 04/15/21 04:11 Khan-Morgan'S Point Bodies Not Reportable 04/15/21 04:11 Gorman Rings Not Reportable 04/15/21 04:11 Ashley Cells Not Reportable 04/15/21 04:11 Bite Cells Not Reportable 04/15/21 04:11 Crenated Cell Not Reportable 04/15/21 04:11 Elliptocytes Not Reportable 04/15/21 04:11 Acanthocytes (Spur) Not Reportable 04/15/21 04:11 Rouleaux Not Reportable 04/15/21 04:11 Hemoglobin C Crystals Not Reportable 04/15/21 04:11 Schistocytes Not Reportable 04/15/21 04:11 Malaria parasites Not Reportable 04/15/21 04:11 Jimmy Bodies Not Reportable 04/15/21 04:11 Hem Pathologist Commnt No 04/15/21 04:11 D-Dimer 490.01 ng/mlDDU (0-234) H 04/17/21 04:43 Sodium 146 mmol/L (137-145) H 04/18/21 04:35 Potassium 3.3 mmol/L (3.6-5.0) L 04/18/21 04:35 Chloride 105.0 mmol/L (98-107) 04/18/21 04:35 Carbon Dioxide 29 mmol/L (22-30) 04/18/21 04:35 Anion Gap 15 mmol/L 04/18/21 04:35 BUN 9 mg/dL (7-17) 04/18/21 04:35 Creatinine 0.5 mg/dL (0.6-1.2) L 04/18/21 04:35 Estimated GFR > 60 ml/min 04/18/21 04:35 BUN/Creatinine Ratio 18 % 04/18/21 04:35 Glucose 340 mg/dL (65-100) H 04/18/21 04:35 POC Glucose 235 mg/dL (70-105) H 04/19/21 07:41 Hemoglobin A1c 7.1 % (4-6) H 04/17/21 04:43 Calcium 8.1 mg/dL (8.4-10.2) L 04/18/21 04:35 Ferritin 308.5 ng/mL (10.0-200.0) H 04/14/21 12:51 Total Bilirubin 0.20 mg/dL (0.1-1.2) 04/18/21 04:35 Direct Bilirubin < 0.2 mg/dL (0-0.2) 04/14/21 12:51 Indirect Bilirubin 0.2 mg/dL 04/14/21 12:51 AST 45 units/L (5-40) H 04/18/21 04:35 ALT 19 units/L (7-56) 04/18/21 04:35 Alkaline Phosphatase 79 units/L (35-129) 04/18/21 04:35 Lactate Dehydrogenase 408 units/L (91-180) H 04/17/21 04:43 C-Reactive Protein 16.80 mg/dL (0.00-1.30) H 04/14/21 12:51 Total Protein 6.8 g/dL (6.3-8.2) 04/18/21 04:35 Albumin 3.4 g/dL (3.9-5) L 04/18/21 04:35 Albumin/Globulin Ratio 1.0 % 04/18/21 04:35 Triglycerides 206 mg/dL (2-149) H 04/17/21 04:43 Cholesterol 156 mg/dL (50-199) 04/17/21 04:43 LDL Cholesterol Direct 91 mg/dL (50-130) 04/17/21 04:43 HDL Cholesterol 23 mg/dL (40-59) L 04/17/21 04:43 Cholesterol/HDL Ratio 6.78 % 04/17/21 04:43 Procalcitonin 0.09 ng/mL (<0.15) 04/14/21 12:51 Coronavirus (PCR) Positive (Negative) A 04/15/21 08:00 Microbiology: Microbiology 04/14/21 12:51 Peripheral/Venous Blood Culture - Preliminary NO GROWTH AFTER 4 DAYS 04/14/21 12:51 Peripheral/Venous Blood Culture - Preliminary NO GROWTH AFTER 4 DAYS Dick/IV: Voiding Method Toilet Active Medications - Current Medications Current Medications: Generic Name Dose Route Start Last Admin Trade Name Freq PRN Reason Stop Dose Admin Acetaminophen 650 mg 04/14/21 13:59 04/18/21 22:29 Acetaminophen 325 Mg Tab PO 650 mg Q4H PRN Administration Pain MILD(1-3)/Fever >100.5/WEISS Albuterol 2.5 mg 04/14/21 13:59 04/17/21 19:39 Albuterol 2.5 Mg/3 Ml Nebu IH 2.5 mg Q4HRT PRN Administration Shortness Of Breath Ascorbic Acid 500 mg 04/14/21 22:00 04/18/21 22:28 Ascorbic Acid 500 Mg Tab PO 500 mg BID JOJO Administration Budesonide 0.25 mg 04/16/21 09:15 04/18/21 19:49 Budesonide 0.25 Mg/2 Ml Nebu IH 0.25 mg Q12HRT JOJO Administration Cholecalciferol 1,000 unit 04/15/21 10:00 04/18/21 10:13 Cholecalciferol (Vit D3) 1000 Unit (25 Mcg) Tab PO 1,000 unit QDAY JOJO Administration Dextrose 50 ml 04/17/21 08:00 Dextrose 50% In Water (25gm) 50 Ml Syringe IV Q30MIN PRN Hypoglycemia Protocol Famotidine 20 mg 04/14/21 22:00 04/18/21 22:28 Famotidine 20 Mg Tab PO 20 mg BID JOJO Administration Heparin Sodium (Porcine) 5,000 unit 04/14/21 22:00 04/18/21 22:28 Heparin 5,000 Unit/1 Ml Vial SUB-Q 5,000 unit Q12HR JOJO Administration Hydromorphone HCl 0.5 mg 04/14/21 13:59 Hydromorphone 1 Mg/1 Ml Inj IV Q23H PRN Pain , Severe (7-10) REMDESIVIR 100 mg/ Sodium 250 mls @ 500 mls/hr 04/17/21 21:00 04/18/21 22:28 Chloride IV 04/20/21 21:29 500 mls/hr Q24HR@2100 JOJO Administration Insulin Glargine 15 units 04/18/21 22:00 04/18/21 22:29 Insulin Glargine 100 Units/Ml SUB-Q 15 units QHS JOJO Administration Insulin Human Lispro 0 unit 04/17/21 08:00 04/18/21 22:29 Insulin Lispro 100 Unit/Ml SUB-Q 10 unit ACHS JOJO Administration Protocol Methylprednisolone Sodium Succinate 40 mg 04/18/21 22:00 04/18/21 22:27 Methylprednisolone Sod Succinate 40 Mg/1 Ml Inj IV 40 mg Q12HR JOJO Administration Ondansetron HCl 4 mg 04/14/21 13:59 Ondansetron 4 Mg/2 Ml Inj IV Q8H PRN Nausea And Vomiting Oxycodone/Acetaminophen 1 tab 04/14/21 13:59 04/18/21 10:10 Oxycodone /Acetaminophen 5-325mg Tab PO 1 tab Q16H PRN Administration Pain, Moderate (4-6) Sodium Chloride 10 ml 04/14/21 22:00 04/18/21 22:28 Sodium Chloride 0.9% 10 Ml Flush Syringe IV 10 ml BID JOJO Administration Sodium Chloride 10 ml 04/14/21 13:59 Sodium Chloride 0.9% 10 Ml Flush Syringe IV PRN PRN LINE FLUSH Sodium Chloride 50 ml 04/16/21 12:00 04/18/21 22:28 Sodium Chloride 0.9% 50 Ml Ivpb IV 04/20/21 21:01 50 ml Q24HR@2100 JOJO Administration Zinc Sulfate 220 mg 04/14/21 22:00 04/18/21 22:28 Zinc Sulfate 220 Mg Cap PO 220 mg BID JOJO Administration
[2021-04-19 08:02] LABS: Alanine Aminotransferase 18 units/L (7-56); Albumin 3.3 g/dL (3.9-5); Blood Urea Nitrogen 10 mg/dL (7-17); Calcium 8.1 mg/dL (8.4-10.2); Hemolysis Index 4
[2021-04-19 08:04] LABS: BUN/Creatinine Ratio 20
[2021-04-19] MEDS: ALBUTEROL 2.5 MG/3 ML NEBU IH PRN (09:07)
[2021-04-19] MEDS: BUDESONIDE 0.25 MG/2 ML NEBU IH SCH (09:07)
[2021-04-19] MEDS: INSULIN LISPRO 100 UNIT/ML SUB-Q SCH ×5 (09:53→22:26)
--- NOTE | 2021-04-19 10:29 | Progress Note ---
Assessment and Plan Cultures: Blood culture no growth so far A/P: 60-year-old female past medical history hypertension admitted with COVID-19 #Severe COVID-19 pneumonia: Patient presented with a week of symptoms, chest x- ray with diffuse bilateral infiltrates, admission O2 sats decreased on room air. Inflammatory markers elevated. #Acute hypoxemic respiratory failure: Likely secondary to COVID-19 infection. Currently on salter #Obesity #Leukopenia: Likely secondary to COVID-19. Resolved. Recs: -On Solu-Medrol. Complete 10 days of steroids -Continue remdesivir, complete 5 days -anticoag per procol based on d-dimer -monitor d-dimer, CRP every 2 days, ordered for AM Jany Tapia MD, FACP [facility] ([facility] O: [phone] F: [phone] Subjective Date of service: 04/19/21 Principal diagnosis: Covid-19 Interval history: No fever. On high flow nasal cannula. Objective - Exam Narrative Exam: Physical Exam (reviewed in chart to minimize risk of transmission) Constitutional: deferred Head, Ears, Nose: deferred Eyes: deferred Neck: deferred Oral: deferred Cardiovascular: deferred Respiratory: deferred GI: deferred Musculoskeletal: deferred Skin: deferred Hem/Lymphatic: deferred Psych: deferred Neurological: deferred - Constitutional Vitals: Vital Signs Temp Pulse Resp BP Pulse Ox 98.5 F 92 H 18 135/58 97 04/19/21 03:57 04/19/21 09:07 04/19/21 09:07 04/19/21 03:57 04/19/21 09:13 Temperature -Last 24 Hours Temperature 98.5 F Temperature 98.4 F Temperature 98.5 F Temperature 98.3 F - Labs CBC & Chem 7: 04/17/21 04:43 04/19/21 06:51 Labs: Abnormal lab results 04/18/21 04/18/21 04/18/21 Range/Units 11:48 16:27 21:04 Potassium (3.6-5.0) mmol/L Creatinine (0.6-1.2) mg/dL Glucose (65-100) mg/dL POC Glucose 359 H 332 H 358 H (70-105) mg/dL Calcium (8.4-10.2) mg/dL Albumin (3.9-5) g/dL 04/19/21 04/19/21 Range/Units 06:51 07:41 Potassium 3.2 L (3.6-5.0) mmol/L Creatinine 0.5 L (0.6-1.2) mg/dL Glucose 278 H (65-100) mg/dL POC Glucose 235 H (70-105) mg/dL Calcium 8.1 L (8.4-10.2) mg/dL Albumin 3.3 L (3.9-5) g/dL
--- NOTE | 2021-04-19 10:36 | Progress Note ---
Assessment and Plan 60 y/o female with acute respiratory failure secondary to COVID 19 pneumonia. Prone Steroids Remdesivir Stop aerosols. Subjective Date of service: 04/19/21 Principal diagnosis: Covid-19 Interval history: No acute events. On 10 liter salter and last documented sat was 97% Objective Vital Signs - 12hr 04/19/21 04/19/21 04/19/21 03:57 09:07 09:13 Temperature 98.5 F Pulse Rate 62 Pulse Rate [ 92 H Anterior Bilateral Throughout] Respiratory 16 Rate Respiratory 18 Rate [Anterior Bilateral Throughout] Blood Pressure 135/58 O2 Sat by Pulse 98 97 Oximetry Constitutional: alert, other (mild distress) Eyes: non-icteric ENT: oropharynx moist Neck: supple Effort: normal Ascultation: Bilateral: other (decreased bs at both bases) CBC and BMP: 04/17/21 04:43 04/19/21 06:51 ABG, PT/INR, D-dimer: PT/INR, D-dimer D-Dimer 490.01 ng/mlDDU (0-234) H 04/17/21 04:43 Abnormal lab findings: Abnormal Labs 04/14/21 04/14/21 04/14/21 12:51 12:51 12:51 WBC 3.3 L RBC 5.04 H MCH 26 L RDW 21.6 H Lymphocytes % (Manual) Lymphocytes # (Manual) 0.8 L D-Dimer 986.33 H Sodium Potassium 3.4 L Chloride 96.1 L BUN 6 L Creatinine Glucose POC Glucose Hemoglobin A1c Calcium 7.9 L Ferritin AST 56 H Lactate Dehydrogenase 505 H C-Reactive Protein 16.80 H Albumin 3.8 L Triglycerides HDL Cholesterol Coronavirus (PCR) 04/14/21 04/15/21 04/15/21 12:51 04:11 04:11 WBC 3.3 L RBC MCH 26 L RDW 19.1 H Lymphocytes % (Manual) 11.0 L Lymphocytes # (Manual) 0.4 L D-Dimer Sodium Potassium Chloride BUN Creatinine 0.5 L Glucose 191 H POC Glucose Hemoglobin A1c Calcium 7.5 L Ferritin 308.5 H AST Lactate Dehydrogenase C-Reactive Protein Albumin Triglycerides HDL Cholesterol Coronavirus (PCR) 04/15/21 04/16/21 04/16/21 08:00 07:11 07:11 WBC RBC MCH 25 L RDW 21.3 H Lymphocytes % (Manual) Lymphocytes # (Manual) D-Dimer Sodium Potassium Chloride BUN 4 L Creatinine 0.5 L Glucose 317 H POC Glucose Hemoglobin A1c Calcium Ferritin AST Lactate Dehydrogenase C-Reactive Protein Albumin Triglycerides HDL Cholesterol Coronavirus (PCR) Positive A 04/17/21 04/17/21 04/17/21 04:43 04:43 04:43 WBC RBC MCH 26 L RDW 20.3 H Lymphocytes % (Manual) Lymphocytes # (Manual) D-Dimer 490.01 H Sodium 147 H Potassium Chloride 108.0 H BUN 6 L Creatinine 0.5 L Glucose 354 H POC Glucose Hemoglobin A1c Calcium 8.3 L Ferritin AST 65 H Lactate Dehydrogenase 408 H C-Reactive Protein Albumin 3.5 L Triglycerides HDL Cholesterol Coronavirus (PCR) 04/17/21 04/17/21 04/17/21 04:43 04:43 09:41 WBC RBC MCH RDW Lymphocytes % (Manual) Lymphocytes # (Manual) D-Dimer Sodium Potassium Chloride BUN Creatinine Glucose POC Glucose 266 H Hemoglobin A1c 7.1 H Calcium Ferritin AST Lactate Dehydrogenase C-Reactive Protein Albumin Triglycerides 206 H HDL Cholesterol 23 L Coronavirus (PCR) 04/17/21 04/17/21 04/17/21 12:06 17:01 22:11 WBC RBC MCH RDW Lymphocytes % (Manual) Lymphocytes # (Manual) D-Dimer Sodium Potassium Chloride BUN Creatinine Glucose POC Glucose 406 H 349 H 374 H Hemoglobin A1c Calcium Ferritin AST Lactate Dehydrogenase C-Reactive Protein Albumin Triglycerides HDL Cholesterol Coronavirus (PCR) 04/18/21 04/18/21 04/18/21 04:35 08:06 11:48 WBC RBC MCH RDW Lymphocytes % (Manual) Lymphocytes # (Manual) D-Dimer Sodium 146 H Potassium 3.3 L Chloride BUN Creatinine 0.5 L Glucose 340 H POC Glucose 280 H 359 H Hemoglobin A1c Calcium 8.1 L Ferritin AST 45 H Lactate Dehydrogenase C-Reactive Protein Albumin 3.4 L Triglycerides HDL Cholesterol Coronavirus (PCR) 04/18/21 04/18/21 04/19/21 16:27 21:04 06:51 WBC RBC MCH RDW Lymphocytes % (Manual) Lymphocytes # (Manual) D-Dimer Sodium Potassium 3.2 L Chloride BUN Creatinine 0.5 L Glucose 278 H POC Glucose 332 H 358 H Hemoglobin A1c Calcium 8.1 L Ferritin AST Lactate Dehydrogenase C-Reactive Protein Albumin 3.3 L Triglycerides HDL Cholesterol Coronavirus (PCR) 04/19/21 07:41 WBC RBC MCH RDW Lymphocytes % (Manual) Lymphocytes # (Manual) D-Dimer Sodium Potassium Chloride BUN Creatinine Glucose POC Glucose 235 H Hemoglobin A1c Calcium Ferritin AST Lactate Dehydrogenase C-Reactive Protein Albumin Triglycerides HDL Cholesterol Coronavirus (PCR)
[2021-04-19] MEDS: methylPREDNISolone Sod Succinate 40 MG/1 ML INJ IV SCH ×2 (10:53→21:42)
[2021-04-19] MEDS: CHOLECALCIFEROL (VIT D3) 1000 UNIT (25 mcg) TAB PO SCH (10:53)
[2021-04-19] MEDS: ZINC SULFATE 220 MG CAP PO SCH ×2 (10:53→21:41)
[2021-04-19] MEDS: ASCORBIC ACID 500 MG TAB PO SCH ×2 (10:53→21:41)
[2021-04-19] MEDS: FAMOTIDINE 20 MG TAB PO SCH ×2 (10:53→21:41)
[2021-04-19] MEDS: HEPARIN 5,000 UNIT/1 ML VIAL SUB-Q SCH ×2 (10:54→21:42)
[2021-04-19] MEDS: ACETAMINOPHEN 325 MG TAB PO PRN (11:12)
[2021-04-19] MEDS: POTASSIUM CHLORIDE ER 20 MEQ TAB PO SCH ×2 (17:00→22:26)
[2021-04-19] MEDS: INSULIN GLARGINE 100 UNITS/ML SUB-Q SCH ×2 (17:05→22:27)
[2021-04-19] MEDS: SODIUM CHLORIDE 0.9% 50 ML IVPB IV SCH (21:40)
[2021-04-19] MEDS: REMDESIVIR 100 MG in SODIUM CHLORIDE 0.9% 250ML 250 ML IV SCH (21:40)
[2021-04-19] MEDS ORDERED: POTASSIUM CHLORIDE ER 20 MEQ TAB PO SCH (23:10)
[2021-04-20] MEDS ORDERED: INSULIN NPH/REGULAR 70/30 INJ SUB-Q ONE (08:00)
[2021-04-20] MEDS: INSULIN LISPRO 100 UNIT/ML SUB-Q SCH ×7 (08:41→21:48)
--- NOTE | 2021-04-20 11:04 | Progress Note ---
Assessment and Plan 60 y/o female with acute respiratory failure secondary to COVID 19 pneumonia. 04/20/21: No new recs. Continue to wean FiO2 for sats >88%. Hopeful discharge soon. Suggest walk test tomorrow or later today if weaned down to 2-3 liters na riki cannula. Prone Steroids Remdesivir Stop aerosols. Subjective Date of service: 04/20/21 Principal diagnosis: Covid-19 Interval history: Down to 5 liters with good sats. Objective Vital Signs - 12hr 04/20/21 02:36 O2 Sat by Pulse 98 Oximetry Constitutional: alert, other (mild distress) Eyes: non-icteric ENT: oropharynx moist Neck: supple Effort: normal Ascultation: Bilateral: other (decreased bs at both bases) CBC and BMP: 04/17/21 04:43 04/19/21 06:51 ABG, PT/INR, D-dimer: PT/INR, D-dimer D-Dimer 293.28 ng/mlDDU (0-234) H 04/20/21 08:25 Abnormal lab findings: Abnormal Labs 04/14/21 04/14/21 04/14/21 12:51 12:51 12:51 WBC 3.3 L RBC 5.04 H MCH 26 L RDW 21.6 H Lymphocytes % (Manual) Lymphocytes # (Manual) 0.8 L D-Dimer 986.33 H Sodium Potassium 3.4 L Chloride 96.1 L BUN 6 L Creatinine Glucose POC Glucose Hemoglobin A1c Calcium 7.9 L Ferritin AST 56 H Lactate Dehydrogenase 505 H C-Reactive Protein 16.80 H Albumin 3.8 L Triglycerides HDL Cholesterol Coronavirus (PCR) 04/14/21 04/15/21 04/15/21 12:51 04:11 04:11 WBC 3.3 L RBC MCH 26 L RDW 19.1 H Lymphocytes % (Manual) 11.0 L Lymphocytes # (Manual) 0.4 L D-Dimer Sodium Potassium Chloride BUN Creatinine 0.5 L Glucose 191 H POC Glucose Hemoglobin A1c Calcium 7.5 L Ferritin 308.5 H AST Lactate Dehydrogenase C-Reactive Protein Albumin Triglycerides HDL Cholesterol Coronavirus (PCR) 04/15/21 04/16/21 04/16/21 08:00 07:11 07:11 WBC RBC MCH 25 L RDW 21.3 H Lymphocytes % (Manual) Lymphocytes # (Manual) D-Dimer Sodium Potassium Chloride BUN 4 L Creatinine 0.5 L Glucose 317 H POC Glucose Hemoglobin A1c Calcium Ferritin AST Lactate Dehydrogenase C-Reactive Protein Albumin Triglycerides HDL Cholesterol Coronavirus (PCR) Positive A 04/17/21 04/17/21 04/17/21 04:43 04:43 04:43 WBC RBC MCH 26 L RDW 20.3 H Lymphocytes % (Manual) Lymphocytes # (Manual) D-Dimer 490.01 H Sodium 147 H Potassium Chloride 108.0 H BUN 6 L Creatinine 0.5 L Glucose 354 H POC Glucose Hemoglobin A1c Calcium 8.3 L Ferritin AST 65 H Lactate Dehydrogenase 408 H C-Reactive Protein Albumin 3.5 L Triglycerides HDL Cholesterol Coronavirus (PCR) 04/17/21 04/17/21 04/17/21 04:43 04:43 09:41 WBC RBC MCH RDW Lymphocytes % (Manual) Lymphocytes # (Manual) D-Dimer Sodium Potassium Chloride BUN Creatinine Glucose POC Glucose 266 H Hemoglobin A1c 7.1 H Calcium Ferritin AST Lactate Dehydrogenase C-Reactive Protein Albumin Triglycerides 206 H HDL Cholesterol 23 L Coronavirus (PCR) 04/17/21 04/17/21 04/17/21 12:06 17:01 22:11 WBC RBC MCH RDW Lymphocytes % (Manual) Lymphocytes # (Manual) D-Dimer Sodium Potassium Chloride BUN Creatinine Glucose POC Glucose 406 H 349 H 374 H Hemoglobin A1c Calcium Ferritin AST Lactate Dehydrogenase C-Reactive Protein Albumin Triglycerides HDL Cholesterol Coronavirus (PCR) 04/18/21 04/18/21 04/18/21 04:35 08:06 11:48 WBC RBC MCH RDW Lymphocytes % (Manual) Lymphocytes # (Manual) D-Dimer Sodium 146 H Potassium 3.3 L Chloride BUN Creatinine 0.5 L Glucose 340 H POC Glucose 280 H 359 H Hemoglobin A1c Calcium 8.1 L Ferritin AST 45 H Lactate Dehydrogenase C-Reactive Protein Albumin 3.4 L Triglycerides HDL Cholesterol Coronavirus (PCR) 04/18/21 04/18/21 04/19/21 16:27 21:04 06:51 WBC RBC MCH RDW Lymphocytes % (Manual) Lymphocytes # (Manual) D-Dimer Sodium Potassium 3.2 L Chloride BUN Creatinine 0.5 L Glucose 278 H POC Glucose 332 H 358 H Hemoglobin A1c Calcium 8.1 L Ferritin AST Lactate Dehydrogenase C-Reactive Protein Albumin 3.3 L Triglycerides HDL Cholesterol Coronavirus (PCR) 04/19/21 04/19/21 04/19/21 07:41 10:47 16:54 WBC RBC MCH RDW Lymphocytes % (Manual) Lymphocytes # (Manual) D-Dimer Sodium Potassium Chloride BUN Creatinine Glucose POC Glucose 235 H 316 H 352 H Hemoglobin A1c Calcium Ferritin AST Lactate Dehydrogenase C-Reactive Protein Albumin Triglycerides HDL Cholesterol Coronavirus (PCR) 04/19/21 04/20/21 04/20/21 21:33 07:22 08:25 WBC RBC MCH RDW Lymphocytes % (Manual) Lymphocytes # (Manual) D-Dimer 293.28 H Sodium Potassium Chloride BUN Creatinine Glucose POC Glucose 402 H 249 H Hemoglobin A1c Calcium Ferritin AST Lactate Dehydrogenase C-Reactive Protein Albumin Triglycerides HDL Cholesterol Coronavirus (PCR)
[2021-04-20] MEDS: ZINC SULFATE 220 MG CAP PO SCH ×2 (11:28→21:47)
[2021-04-20] MEDS: HEPARIN 5,000 UNIT/1 ML VIAL SUB-Q SCH ×2 (11:28→21:47)
[2021-04-20] MEDS: CHOLECALCIFEROL (VIT D3) 1000 UNIT (25 mcg) TAB PO SCH (11:28)
[2021-04-20] MEDS: FAMOTIDINE 20 MG TAB PO SCH ×2 (11:28→21:47)
[2021-04-20] MEDS: methylPREDNISolone Sod Succinate 40 MG/1 ML INJ IV SCH (11:28)
[2021-04-20] MEDS: ASCORBIC ACID 500 MG TAB PO SCH ×2 (11:28→21:47)
--- NOTE | 2021-04-20 13:30 | Progress Note ---
Assessment and Plan Cultures: Blood culture no growth so far A/P: 60-year-old female past medical history hypertension admitted with COVID-19 #Severe COVID-19 pneumonia: Patient presented with a week of symptoms, chest x- ray with diffuse bilateral infiltrates, admission O2 sats decreased on room air. Inflammatory markers elevated. #Acute hypoxemic respiratory failure: Likely secondary to COVID-19 infection. Currently on salter. #Obesity #Leukopenia: Likely secondary to COVID-19. Resolved. Recs: -Complete 10 days of steroids -Continue remdesivir, complete 5 days -anticoag per procol based on d-dimer -CRP 0.8, D-dimer 293. Remains on Salter nasal cannula, down to 5 L/min -ambulatory sats and discharge planning Jany Tapia MD, FACP [facility] ([facility] O: [phone] F: [phone] Subjective Date of service: 04/20/21 Principal diagnosis: Covid-19 Interval history: No fever. CRP 0.8, D-dimer 293. Remains on Salter nasal cannula, down to 5 L/min. Objective - Exam Narrative Exam: Physical Exam (reviewed in chart to minimize risk of transmission) Constitutional: deferred Head, Ears, Nose: deferred Eyes: deferred Neck: deferred Oral: deferred Cardiovascular: deferred Respiratory: deferred GI: deferred Musculoskeletal: deferred Skin: deferred Hem/Lymphatic: deferred Psych: deferred Neurological: deferred - Constitutional Vitals: Vital Signs Temp Pulse Resp BP Pulse Ox 99.0 F 89 18 152/72 93 04/20/21 11:04 04/20/21 11:22 04/20/21 11:04 04/20/21 11:04 04/20/21 11:22 Temperature -Last 24 Hours Temperature 99.0 F Temperature 98.9 F Temperature 97.4 F Temperature 97.5 F - Labs CBC & Chem 7: 04/17/21 04:43 04/19/21 06:51 Labs: Abnormal lab results 04/19/21 04/19/21 04/20/21 Range/Units 16:54 21:33 07:22 D-Dimer (0-234) ng/mlDDU POC Glucose 352 H 402 H 249 H (70-105) mg/dL 04/20/21 04/20/21 Range/Units 08:25 11:01 D-Dimer 293.28 H (0-234) ng/mlDDU POC Glucose 270 H (70-105) mg/dL
--- NOTE | 2021-04-20 14:44 | Progress Note ---
Assessment and Plan Assessment and plan: 60-year-old female with no significant past medical history who presented with shortness of breath after COVID-19 diagnosis a week ago. Found to be in acute hypoxic respiratory failure. CT was negative for PE, but shows bilateral pneumonia. Currently on 10L. Stable. #Acute hypoxic respiratory failure-improving #COVID-19 pneumonia #Community-acquired pneumonia -CTA negative for PE, shows bilateral opacities with super imposed bilateral lower lobe consolidations -currently on 5 L supplemental O2, will wean as able. Pending walk test. -Maintain oxygen saturations greater than 90% -azithromycin and Rocephin discontinued -continue steroids x10 days; solumedrol, will taper -Remdesivir (dose 4 of 5 today), will complete 5 dose course on 04/21/2021 -Infectious disease and Pulmonology consulted, assistance appreciated -Encouraged proning #Hyperglycemia #New Onset Type II Diabetes -No prior history of diabetes, A1c 7.1% -required 18 U of SSI over last 24hrs -will increase lantus to 20U QHS and will add 3U aspart with meals -worsening likely steroid-induced -will require metformin at discharge--> discharging with Metformin 500 twice daily. Patient will follow up with PCP for further management. #Hypokalemia -will replete and monitor #Leukopenia-resolved -Likely secondary to infection #Splenic artery aneurysm -Incidental finding on CT -1.8 x 1.9 cm in size -will need outpatient surveillance #Discharge planning -Patient pending walk test to determine final oxygen requirements. If less than 5 L nasal cannula, patient can be discharged tomorrow. -Counseled patient on isolating herself from family members who are Covid negative upon discharge until after 14 days post diagnosis. Patient expressed understanding. -Referring patient to primary care upon discharge. #Advanced care planning -Disease education conducted, care plan discussed, diagnoses discussed, prognosis discussed, and patient acknowledges understanding with care plan -Time: 30 minutes Disposition Plan: Continue medical management. Pending possible discharge in a.m. Total Time Spent with Patient (Minutes): 40 minutes History Interval history: No acute events over night. The patient denies fevers, chills, nausea, vomiting, abdominal pain, chest pain/pressure, shortness of breath, urinary symptoms, weakness, or confusion. Hospitalist Physical - Constitutional Vitals: Temp Pulse Resp BP Pulse Ox 99.0 F 89 18 152/72 93 04/20/21 11:04 04/20/21 11:22 04/20/21 11:04 04/20/21 11:04 04/20/21 11:22 General appearance: Present: no acute distress, well-nourished, obese - EENT Eyes: Present: PERRL, EOM intact ENT: hearing intact, clear oral mucosa, dentition normal - Neck Neck: Present: supple, normal ROM - Respiratory Respiratory effort: normal (On 5 L nasal cannula) Respiratory: bilateral: CTA - Cardiovascular Rhythm: regular Heart Sounds: Present: S1 & S2 - Extremities Extremities: no ischemia, pulses intact, pulses symmetrical, No edema, normal temperature, normal color Peripheral Pulses: within normal limits - Abdominal General gastrointestinal: soft, non-tender, non-distended, normal bowel sounds - Integumentary Integumentary: Present: clear, warm, dry - Psychiatric Psychiatric: appropriate mood/affect, intact judgment & insight, memory intact, cooperative - Neurologic Neurologic: CNII-XII intact, moves all extremities - Allied Health Allied health notes reviewed: nursing Results - Labs CBC & Chem 7: 04/17/21 04:43 04/19/21 06:51 Labs: Laboratory Last Values WBC 10.2 K/mm3 (4.5-11.0) 04/17/21 04:43 RBC 4.42 M/mm3 (3.65-5.03) 04/17/21 04:43 Hgb 11.6 gm/dl (10.1-14.3) 04/17/21 04:43 Hct 36.4 % (30.3-42.9) 04/17/21 04:43 MCV 83 fl (79-97) 04/17/21 04:43 MCH 26 pg (28-32) L 04/17/21 04:43 MCHC 32 % (30-34) 04/17/21 04:43 RDW 20.3 % (13.2-15.2) H 04/17/21 04:43 Plt Count 293 K/mm3 (140-440) 04/17/21 04:43 Add Manual Diff Complete 04/15/21 04:11 Total Counted 100 04/15/21 04:11 Seg Neuts % (Manual) 67.0 % (40.0-70.0) 04/15/21 04:11 Band Neutrophils % 11.0 % 04/15/21 04:11 Lymphocytes % (Manual) 11.0 % (13.4-35.0) L 04/15/21 04:11 Reactive Lymphs % (Man) 1.0 % 04/15/21 04:11 Monocytes % (Manual) 7.0 % (0.0-7.3) 04/15/21 04:11 Basophils % (Manual) 1.0 % (0.0-1.8) 04/15/21 04:11 Myelocytes % 1.0 % 04/15/21 04:11 Promyelocytes % 1.0 % 04/15/21 04:11 Nucleated RBC % Not Reportable 04/15/21 04:11 Seg Neutrophils # Man 2.2 K/mm3 (1.8-7.7) 04/15/21 04:11 Band Neutrophils # 0.4 K/mm3 04/15/21 04:11 Lymphocytes # (Manual) 0.4 K/mm3 (1.2-5.4) L 04/15/21 04:11 Abs React Lymphs (Man) 0.0 K/mm3 04/15/21 04:11 Monocytes # (Manual) 0.2 K/mm3 (0.0-0.8) 04/15/21 04:11 Eosinophils # (Manual) 0.0 K/mm3 (0.0-0.4) 04/15/21 04:11 Basophils # (Manual) 0.0 K/mm3 (0.0-0.1) 04/15/21 04:11 Metamyelocytes # 0.0 K/mm3 04/15/21 04:11 Myelocytes # 0.0 K/mm3 04/15/21 04:11 Promyelocytes # 0.0 K/mm3 04/15/21 04:11 Blast Cells # 0.0 K/mm3 04/15/21 04:11 WBC Morphology Not Reportable 04/15/21 04:11 Hypersegmented Neuts Not Reportable 04/15/21 04:11 Hyposegmented Neuts Not Reportable 04/15/21 04:11 Hypogranular Neuts Not Reportable 04/15/21 04:11 Smudge Cells Not Reportable 04/15/21 04:11 Toxic Granulation Not Reportable 04/15/21 04:11 Toxic Vacuolation Not Reportable 04/15/21 04:11 Dohle Bodies Not Reportable 04/15/21 04:11 Pelger-Huet Anomaly Not Reportable 04/15/21 04:11 Edelmira Rods Not Reportable 04/15/21 04:11 Platelet Estimate Consistent w auto 04/15/21 04:11 Clumped Platelets Not Reportable 04/15/21 04:11 Plt Clumps, EDTA Not Reportable 04/15/21 04:11 Large Platelets Few 04/15/21 04:11 Giant Platelets Not Reportable 04/15/21 04:11 Platelet Satelliting Not Reportable 04/15/21 04:11 Plt Morphology Comment Not Reportable 04/15/21 04:11 RBC Morphology Not Reportable 04/15/21 04:11 Dimorphic RBCs Not Reportable 04/15/21 04:11 Polychromasia Not Reportable 04/15/21 04:11 Hypochromasia 1+ 04/15/21 04:11 Poikilocytosis Not Reportable 04/15/21 04:11 Anisocytosis Not Reportable 04/15/21 04:11 Microcytosis Not Reportable 04/15/21 04:11 Macrocytosis Not Reportable 04/15/21 04:11 Spherocytes Not Reportable 04/15/21 04:11 Pappenheimer Bodies Not Reportable 04/15/21 04:11 Sickle Cells Not Reportable 04/15/21 04:11 Target Cells Not Reportable 04/15/21 04:11 Tear Drop Cells Not Reportable 04/15/21 04:11 Ovalocytes Not Reportable 04/15/21 04:11 Helmet Cells Not Reportable 04/15/21 04:11 Khan-[place] Bodies Not Reportable 04/15/21 04:11 [place] Rings Not Reportable 04/15/21 04:11 Ald[place] Cells Not Reportable 04/15/21 04:11 Bite Cells Not Reportable 04/15/21 04:11 Crenated Cell Not Reportable 04/15/21 04:11 Elliptocytes Not Reportable 04/15/21 04:11 Acanthocytes (Spur) Not Reportable 04/15/21 04:11 Rouleaux Not Reportable 04/15/21 04:11 Hemoglobin C Crystals Not Reportable 04/15/21 04:11 Schistocytes Not Reportable 04/15/21 04:11 Malaria parasites Not Reportable 04/15/21 04:11 Jimmy Bodies Not Reportable 04/15/21 04:11 Hem Pathologist Commnt No 04/15/21 04:11 D-Dimer 293.28 ng/mlDDU (0-234) H 04/20/21 08:25 Sodium 141 mmol/L (137-145) 04/19/21 06:51 Potassium 3.2 mmol/L (3.6-5.0) L 04/19/21 06:51 Chloride 99.6 mmol/L (98-107) 04/19/21 06:51 Carbon Dioxide 29 mmol/L (22-30) 04/19/21 06:51 Anion Gap 16 mmol/L 04/19/21 06:51 BUN 10 mg/dL (7-17) 04/19/21 06:51 Creatinine 0.5 mg/dL (0.6-1.2) L 04/19/21 06:51 Estimated GFR > 60 ml/min 04/19/21 06:51 BUN/Creatinine Ratio 20 % 04/19/21 06:51 Glucose 278 mg/dL (65-100) H 04/19/21 06:51 POC Glucose 270 mg/dL (70-105) H 04/20/21 11:01 Hemoglobin A1c 7.1 % (4-6) H 04/17/21 04:43 Calcium 8.1 mg/dL (8.4-10.2) L 04/19/21 06:51 Ferritin 308.5 ng/mL (10.0-200.0) H 04/14/21 12:51 Total Bilirubin 0.20 mg/dL (0.1-1.2) 04/19/21 06:51 Direct Bilirubin < 0.2 mg/dL (0-0.2) 04/14/21 12:51 Indirect Bilirubin 0.2 mg/dL 04/14/21 12:51 AST 32 units/L (5-40) 04/19/21 06:51 ALT 18 units/L (7-56) 04/19/21 06:51 Alkaline Phosphatase 77 units/L (35-129) 04/19/21 06:51 Lactate Dehydrogenase 408 units/L (91-180) H 04/17/21 04:43 C-Reactive Protein 0.80 mg/dL (0.00-1.30) 04/20/21 08:25 Total Protein 6.6 g/dL (6.3-8.2) 04/19/21 06:51 Albumin 3.3 g/dL (3.9-5) L 04/19/21 06:51 Albumin/Globulin Ratio 1.0 % 04/19/21 06:51 Triglycerides 206 mg/dL (2-149) H 04/17/21 04:43 Cholesterol 156 mg/dL (50-199) 04/17/21 04:43 LDL Cholesterol Direct 91 mg/dL (50-130) 04/17/21 04:43 HDL Cholesterol 23 mg/dL (40-59) L 04/17/21 04:43 Cholesterol/HDL Ratio 6.78 % 04/17/21 04:43 Procalcitonin 0.09 ng/mL (<0.15) 04/14/21 12:51 Coronavirus (PCR) Positive (Negative) A 04/15/21 08:00 Microbiology: Microbiology 04/14/21 12:51 Peripheral/Venous Blood Culture - Final NO GROWTH AFTER 5 DAYS 04/14/21 12:51 Peripheral/Venous Blood Culture - Final NO GROWTH AFTER 5 DAYS Dick/IV: Voiding Method Toilet Active Medications - Current Medications Current Medications: Generic Name Dose Route Start Last Admin Trade Name Freq PRN Reason Stop Dose Admin Acetaminophen 650 mg 04/14/21 13:59 04/19/21 11:12 Acetaminophen 325 Mg Tab PO 650 mg Q4H PRN Administration Pain MILD(1-3)/Fever >100.5/WEISS Ascorbic Acid 500 mg 04/14/21 22:00 04/20/21 11:28 Ascorbic Acid 500 Mg Tab PO 500 mg BID JOJO Administration Cholecalciferol 1,000 unit 04/15/21 10:00 04/20/21 11:28 Cholecalciferol (Vit D3) 1000 Unit (25 Mcg) Tab PO 1,000 unit QDAY JOJO Administration Dextrose 50 ml 04/17/21 08:00 Dextrose 50% In Water (25gm) 50 Ml Syringe IV Q30MIN PRN Hypoglycemia Protocol Famotidine 20 mg 04/14/21 22:00 04/20/21 11:28 Famotidine 20 Mg Tab PO 20 mg BID JOJO Administration Heparin Sodium (Porcine) 5,000 unit 04/14/21 22:00 04/20/21 11:28 Heparin 5,000 Unit/1 Ml Vial SUB-Q 5,000 unit Q12HR JOJO Administration Hydromorphone HCl 0.5 mg 04/14/21 13:59 Hydromorphone 1 Mg/1 Ml Inj IV Q23H PRN Pain , Severe (7-10) REMDESIVIR 100 mg/ Sodium 250 mls @ 500 mls/hr 04/17/21 21:00 04/19/21 21:40 Chloride IV 04/20/21 21:29 500 mls/hr Q24HR@2100 JOJO Administration Insulin Glargine 30 units 04/20/21 22:00 Insulin Glargine 100 Units/Ml SUB-Q QHS JOJO Insulin Human Lispro 0 unit 04/17/21 08:00 04/20/21 12:32 Insulin Lispro 100 Unit/Ml SUB-Q 6 unit ACHS [facility] Administration Protocol Insulin Human Lispro 3 unit 04/19/21 16:30 04/20/21 12:32 Insulin Lispro 100 Unit/Ml SUB-Q 3 unit AC [facility] Administration Methylprednisolone Sodium Succinate 40 mg 04/18/21 22:00 04/20/21 11:28 Methylprednisolone Sod Succinate 40 Mg/1 Ml Inj IV 40 mg Q12HR JOJO Administration Ondansetron HCl 4 mg 04/14/21 13:59 Ondansetron 4 Mg/2 Ml Inj IV Q8H PRN Nausea And Vomiting Oxycodone/Acetaminophen 1 tab 04/14/21 13:59 04/18/21 10:10 Oxycodone /Acetaminophen 5-325mg Tab PO 1 tab Q16H PRN Administration Pain, Moderate (4-6) Sodium Chloride 10 ml 04/14/21 22:00 04/20/21 12:01 Sodium Chloride 0.9% 10 Ml Flush Syringe IV 10 ml BID JOJO Administration Sodium Chloride 10 ml 04/14/21 13:59 Sodium Chloride 0.9% 10 Ml Flush Syringe IV PRN PRN LINE FLUSH Sodium Chloride 50 ml 04/16/21 12:00 04/19/21 21:40 Sodium Chloride 0.9% 50 Ml Ivpb IV 04/20/21 21:01 50 ml Q24HR@2100 JOJO Administration Zinc Sulfate 220 mg 04/14/21 22:00 04/20/21 11:28 Zinc Sulfate 220 Mg Cap PO 220 mg BID JOJO Administration
[2021-04-20] MEDS: REMDESIVIR 100 MG in SODIUM CHLORIDE 0.9% 250ML 250 ML IV SCH (21:46)
[2021-04-20] MEDS: INSULIN GLARGINE 100 UNITS/ML SUB-Q SCH (21:46)
[2021-04-20] MEDS: SODIUM CHLORIDE 0.9% 50 ML IVPB IV SCH (21:47)
[2021-04-21 07:44] LABS: Blood Urea Nitrogen 12 mg/dL (7-17); Calcium 8.6 mg/dL (8.4-10.2); Hemolysis Index 5
[2021-04-21 07:45] LABS: BUN/Creatinine Ratio 30
[2021-04-21] MEDS: INSULIN LISPRO 100 UNIT/ML SUB-Q SCH ×7 (08:40→22:11)
[2021-04-21] MEDS: CHOLECALCIFEROL (VIT D3) 1000 UNIT (25 mcg) TAB PO SCH (10:41)
[2021-04-21] MEDS: methylPREDNISolone Sod Succinate 40 MG/1 ML INJ IV SCH (10:41)
[2021-04-21] MEDS: ASCORBIC ACID 500 MG TAB PO SCH ×2 (10:41→21:13)
[2021-04-21] MEDS: HEPARIN 5,000 UNIT/1 ML VIAL SUB-Q SCH ×2 (10:41→21:12)
[2021-04-21] MEDS: ZINC SULFATE 220 MG CAP PO SCH ×2 (10:41→21:13)
[2021-04-21] MEDS: FAMOTIDINE 20 MG TAB PO SCH ×2 (10:41→21:13)
--- NOTE | 2021-04-21 13:50 | Progress Note ---
Assessment and Plan 60 y/o female with acute respiratory failure secondary to COVID 19 pneumonia. 04/21/21: Wean FiO2 for sats >88%. Walk test once FiO2 is weaned down further. HOpeful discharge soon. 04/20/21: No new recs. Continue to wean FiO2 for sats >88%. Hopeful discharge soon. Suggest walk test tomorrow or later today if weaned down to 2-3 liters nasal cannula. Prone Steroids Remdesivir Stop aerosols. Subjective Date of service: 04/21/21 Principal diagnosis: Covid-19 Interval history: Only weaned to 4. Sats are still very good. No weaning done overnight. Objective Vital Signs - 12hr 04/21/21 04/21/21 04/21/21 05:20 10:00 12:38 Temperature 97.9 F 98.3 F Pulse Rate 65 89 Respiratory 16 18 Rate Blood Pressure 131/62 147/81 O2 Sat by Pulse 99 98 96 Oximetry Constitutional: alert, other (mild distress) Eyes: non-icteric ENT: oropharynx moist Neck: supple Effort: normal Ascultation: Bilateral: other (decreased bs at both bases) CBC and BMP: 04/17/21 04:43 04/21/21 06:53 ABG, PT/INR, D-dimer: PT/INR, D-dimer D-Dimer 293.28 ng/mlDDU (0-234) H 04/20/21 08:25 Abnormal lab findings: Abnormal Labs 04/14/21 04/14/21 04/14/21 12:51 12:51 12:51 WBC 3.3 L RBC 5.04 H MCH 26 L RDW 21.6 H Lymphocytes % (Manual) Lymphocytes # (Manual) 0.8 L D-Dimer 986.33 H Sodium Potassium 3.4 L Chloride 96.1 L BUN 6 L Creatinine Glucose POC Glucose Hemoglobin A1c Calcium 7.9 L Ferritin AST 56 H Lactate Dehydrogenase 505 H C-Reactive Protein 16.80 H Albumin 3.8 L Triglycerides HDL Cholesterol Coronavirus (PCR) 04/14/21 04/15/21 04/15/21 12:51 04:11 04:11 WBC 3.3 L RBC MCH 26 L RDW 19.1 H Lymphocytes % (Manual) 11.0 L Lymphocytes # (Manual) 0.4 L D-Dimer Sodium Potassium Chloride BUN Creatinine 0.5 L Glucose 191 H POC Glucose Hemoglobin A1c Calcium 7.5 L Ferritin 308.5 H AST Lactate Dehydrogenase C-Reactive Protein Albumin Triglycerides HDL Cholesterol Coronavirus (PCR) 04/15/21 04/16/21 04/16/21 08:00 07:11 07:11 WBC RBC MCH 25 L RDW 21.3 H Lymphocytes % (Manual) Lymphocytes # (Manual) D-Dimer Sodium Potassium Chloride BUN 4 L Creatinine 0.5 L Glucose 317 H POC Glucose Hemoglobin A1c Calcium Ferritin AST Lactate Dehydrogenase C-Reactive Protein Albumin Triglycerides HDL Cholesterol Coronavirus (PCR) Positive A 04/17/21 04/17/21 04/17/21 04:43 04:43 04:43 WBC RBC MCH 26 L RDW 20.3 H Lymphocytes % (Manual) Lymphocytes # (Manual) D-Dimer 490.01 H Sodium 147 H Potassium Chloride 108.0 H BUN 6 L Creatinine 0.5 L Glucose 354 H POC Glucose Hemoglobin A1c Calcium 8.3 L Ferritin AST 65 H Lactate Dehydrogenase 408 H C-Reactive Protein Albumin 3.5 L Triglycerides HDL Cholesterol Coronavirus (PCR) 04/17/21 04/17/21 04/17/21 04:43 04:43 09:41 WBC RBC MCH RDW Lymphocytes % (Manual) Lymphocytes # (Manual) D-Dimer Sodium Potassium Chloride BUN Creatinine Glucose POC Glucose 266 H Hemoglobin A1c 7.1 H Calcium Ferritin AST Lactate Dehydrogenase C-Reactive Protein Albumin Triglycerides 206 H HDL Cholesterol 23 L Coronavirus (PCR) 04/17/21 04/17/21 04/17/21 12:06 17:01 22:11 WBC RBC MCH RDW Lymphocytes % (Manual) Lymphocytes # (Manual) D-Dimer Sodium Potassium Chloride BUN Creatinine Glucose POC Glucose 406 H 349 H 374 H Hemoglobin A1c Calcium Ferritin AST Lactate Dehydrogenase C-Reactive Protein Albumin Triglycerides HDL Cholesterol Coronavirus (PCR) 04/18/21 04/18/21 04/18/21 04:35 08:06 11:48 WBC RBC MCH RDW Lymphocytes % (Manual) Lymphocytes # (Manual) D-Dimer Sodium 146 H Potassium 3.3 L Chloride BUN Creatinine 0.5 L Glucose 340 H POC Glucose 280 H 359 H Hemoglobin A1c Calcium 8.1 L Ferritin AST 45 H Lactate Dehydrogenase C-Reactive Protein Albumin 3.4 L Triglycerides HDL Cholesterol Coronavirus (PCR) 04/18/21 04/18/21 04/19/21 16:27 21:04 06:51 WBC RBC MCH RDW Lymphocytes % (Manual) Lymphocytes # (Manual) D-Dimer Sodium Potassium 3.2 L Chloride BUN Creatinine 0.5 L Glucose 278 H POC Glucose 332 H 358 H Hemoglobin A1c Calcium 8.1 L Ferritin AST Lactate Dehydrogenase C-Reactive Protein Albumin 3.3 L Triglycerides HDL Cholesterol Coronavirus (PCR) 04/19/21 04/19/21 04/19/21 07:41 10:47 16:54 WBC RBC MCH RDW Lymphocytes % (Manual) Lymphocytes # (Manual) D-Dimer Sodium Potassium Chloride BUN Creatinine Glucose POC Glucose 235 H 316 H 352 H Hemoglobin A1c Calcium Ferritin AST Lactate Dehydrogenase C-Reactive Protein Albumin Triglycerides HDL Cholesterol Coronavirus (PCR) 04/19/21 04/20/21 04/20/21 21:33 07:22 08:25 WBC RBC MCH RDW Lymphocytes % (Manual) Lymphocytes # (Manual) D-Dimer 293.28 H Sodium Potassium Chloride BUN Creatinine Glucose POC Glucose 402 H 249 H Hemoglobin A1c Calcium Ferritin AST Lactate Dehydrogenase C-Reactive Protein Albumin Triglycerides HDL Cholesterol Coronavirus (PCR) 04/20/21 04/20/21 04/20/21 11:01 16:22 21:12 WBC RBC MCH RDW Lymphocytes % (Manual) Lymphocytes # (Manual) D-Dimer Sodium Potassium Chloride BUN Creatinine Glucose POC Glucose 270 H 258 H 367 H Hemoglobin A1c Calcium Ferritin AST Lactate Dehydrogenase C-Reactive Protein Albumin Triglycerides HDL Cholesterol Coronavirus (PCR) 04/21/21 04/21/21 04/21/21 06:53 07:37 12:03 WBC RBC MCH RDW Lymphocytes % (Manual) Lymphocytes # (Manual) D-Dimer Sodium Potassium Chloride BUN Creatinine 0.4 L Glucose 193 H POC Glucose 182 H 147 H Hemoglobin A1c Calcium Ferritin AST Lactate Dehydrogenase C-Reactive Protein Albumin Triglycerides HDL Cholesterol Coronavirus (PCR)
--- NOTE | 2021-04-21 14:15 | Progress Note ---
Assessment and Plan Cultures: Blood culture no growth so far A/P: 60-year-old female past medical history hypertension admitted with COVID-19 #Severe COVID-19 pneumonia: Patient presented with a week of symptoms, chest x- ray with diffuse bilateral infiltrates, admission O2 sats decreased on room air. Inflammatory markers much improved. #Acute hypoxemic respiratory failure: Likely secondary to COVID-19 infection. Currently on NC #Obesity #Leukopenia: Likely secondary to COVID-19. Resolved. Recs: -Complete remainder of steroid course. CRP normal. -completed remdesivir -anticoag per procol based on d-dimer -ambulatory sats and discharge planning Jany Tapia MD, FACP [facility] ([facility]) O: [phone] F: [phone] Subjective Date of service: 04/21/21 Principal diagnosis: Covid-19 Interval history: No fever. Remains on oxygen by [place]. Objective - Exam Narrative Exam: Physical Exam (reviewed in chart to minimize risk of transmission) Constitutional: deferred Head, Ears, Nose: deferred Eyes: deferred Neck: deferred Oral: deferred Cardiovascular: deferred Respiratory: deferred GI: deferred Musculoskeletal: deferred Skin: deferred Hem/Lymphatic: deferred Psych: deferred Neurological: deferred - Constitutional Vitals: Vital Signs Temp Pulse Resp BP Pulse Ox 98.3 F 89 18 147/81 96 04/21/21 12:38 04/21/21 12:38 04/21/21 12:38 04/21/21 12:38 04/21/21 12:38 Temperature -Last 24 Hours Temperature 98.3 F Temperature 97.9 F - Labs CBC & Chem 7: 04/17/21 04:43 04/21/21 06:53 Labs: Abnormal lab results 04/20/21 04/20/21 04/21/21 Range/Units 16:22 21:12 06:53 Creatinine 0.4 L (0.6-1.2) mg/dL Glucose 193 H (65-100) mg/dL POC Glucose 258 H 367 H (70-105) mg/dL 04/21/21 04/21/21 Range/Units 07:37 12:03 Creatinine (0.6-1.2) mg/dL Glucose (65-100) mg/dL POC Glucose 182 H 147 H (70-105) mg/dL
--- NOTE | 2021-04-21 15:36 | Discharge Summary ---
Providers - Providers Date of Admission: 04/14/21 14:00 Date of discharge: 04/21/21 Attending physician: THOMAS YOUNG MD 04/15/21 14:22 Consult to Physician [CONS] Routine Comment: Consulting Provider: PAUL LAYTON Physician Instructions: Reason For Exam: COVID PNA 04/16/21 07:37 Consult to Physician [CONS] Routine Comment: Consulting Provider: FLORES MEMBRENO Physician Instructions: Reason For Exam: respiratory failure / COVID PNA Primary care physician: [facility] Hospital[facility] Reason for admission: Acute hypoxic respiratory failure Condition: Stable Pertinent studies: Reviewed. Procedures: None. Hospital course: 60-year-old female with no significant past medical history who presented with shortness of breath after COVID-19 diagnosis a week ago. Found to be in acute hypoxic respiratory failure. CT was negative for PE, but shows bilateral pneumonia. The patient was treated with azithromycin and Rocephin for community-acquired pneumonia, completing the antibiotic course. Patient was also treated with steroids and remdesivir for COVID-19 pneumonia. The acute hypoxic respiratory failure has since been improving with the patient currently requiring 4 L nasal cannula. Patient was newly diagnosed with type 2 diabetes mellitus with hemoglobin A1c of 7.1. Patient's blood sugars have been elevated, likely secondary to steroid administration. The patient will be discharging on Metformin 500 mg twice daily with PCP follow-up for further management. The patient will be discharging home with home oxygen, and the patient will follow up with primary care for close follow-up regarding oxygen requirements. Patient expressed understanding. Disposition: 01 HOME / SELF CARE / HOMELESS Final Discharge Diagnosis (Prints w/discharge instructions): Acute hypoxic respiratory failure, COVID-19 pneumonia, community-acquired pneumonia, newly diagnosed type 2 diabetes mellitus, hypokalemia, leukopenia, splenic artery aneurysm Time spent for discharge: 45 minutes Core Measure Documentation - Palliative Care Palliative Care/ Comfort Measures: Not Applicable - Core Measures Any of the following diagnoses?: none - VTE Discharge Requirements Deep Vein Thrombosis/Pulmonary Embolism Present on Admission: No Has pt received <5 days of overlap therapy or INR<2.0: No (Not indicated) Anticoagulant overlap therapy prescribed at discharge: No Contraindication No Overlap Therapy order at DC: Not Indicated - Acute MD Discharge Requirements Aspirin at discharge: No Reason for no aspirin on DC: Medical contraindication (Not indicated) PETRONA/ARB for LVSD if EF <40%: Not Applicable Reason for no PETRONA/ARB: Medical contraindication (Not indicated) Beta tawana at discharge: No Reason for no beta tawana on DC: Medical contraindication (Not indicated) Statin for LDL = or >100 mg/dl on DC: Not Applicable Reason for no statin on DC: Medical contraindication (Not indicated) - Heart Failure Discharge Requirements PETRONA/ARB for LVSD if EF <40%: Not Applicable Reason for no PETRONA/ARB: Medical contraindication (Not indicated) Beta tawana at discharge: No Reason for no beta tawana on DC: Medical contraindication (Not indicated) - Stroke Discharge Requirements Statin for LDL = or >70 mg/dl on DC: Not Applicable Reason for no statin on DC: Not Indicated Anticoag for atrial fib/atrial flutter: No Reason for no anticoag for AF/F on DC: Not Indicated Antithrombotic for ischemic stroke: No Reason for no antithrombotic on DC: Not Indicated Exam - Constitutional Vitals: Temp Pulse Resp BP Pulse Ox 98.3 F 89 18 147/81 96 04/21/21 12:38 04/21/21 12:38 04/21/21 12:38 04/21/21 12:38 04/21/21 12:38 General appearance: Present: no acute distress, well-nourished - EENT Eyes: Present: PERRL, EOM intact ENT: hearing intact, clear oral mucosa, dentition normal - Neck Neck: Present: supple, normal ROM - Respiratory Respiratory effort: normal (On 4 L nasal cannula) Respiratory: bilateral: diminished - Cardiovascular Rhythm: regular Heart Sounds: Present: S1 & S2 - Extremities Extremities: no ischemia, pulses intact, pulses symmetrical, No edema, normal temperature, normal color, Full ROM Peripheral Pulses: within normal limits - Abdominal General gastrointestinal: Present: soft, non-tender, non-distended, normal bowel sounds Female genitourinary: Present: deferred - Rectal Rectal Exam: deferred - Integumentary Integumentary: Present: clear, warm, dry - Musculoskeletal Musculoskeletal: strength equal bilaterally - Psychiatric Psychiatric: appropriate mood/affect, intact judgment & insight, memory intact, cooperative - Neurologic Neurologic: CNII-XII intact, moves all extremities - Allied Health Allied health notes reviewed: nursing Plan Activity: no restrictions Diet: diabetic Durable Medical Equipment Needed Upon Discharge: Oxygen Care Plan Goals: Patient discharging home safely. Assessment: Patient was admitted for management of Covid pneumonia complicated by acute hypoxic respiratory failure and community-acquired pneumonia. Patient was managed with steroids and remdesivir for Covid management. The patient has since been weaned down to 4 L nasal cannula. The patient was newly diagnosed with noninsulin-dependent type 2 diabetes, and the patient will be discharging home with Metformin 500 mg twice daily. The patient is being referred for PCP follow-up for management of oxygen requirement and diabetes. Patient expressed understanding. Patient will be discharging home with home oxygen. Follow up with: HANDY GRAHAM MD [Staff Physician] - 14 Days (PCP referral- admitted for COVID-19 pneumonia with hypoxic respiratory failure (requiring 5L NC)) PRIMARY CAREMD [Primary Care Provider] - 3-5 Days Prescriptions: Dexamethasone [Decadron] 6 mg PO DAILY 6 Days #6 tablet metFORMIN XR [Glucophage XR] 500 mg PO BID #60 tab
[2021-04-22] MEDS: INSULIN GLARGINE 100 UNITS/ML SUB-Q SCH (00:10)
[2021-04-22] MEDS: INSULIN LISPRO 100 UNIT/ML SUB-Q SCH ×4 (07:57→13:08)
[2021-04-22] MEDS: CHOLECALCIFEROL (VIT D3) 1000 UNIT (25 mcg) TAB PO SCH (10:00)
[2021-04-22] MEDS: ZINC SULFATE 220 MG CAP PO SCH (10:00)
[2021-04-22] MEDS: ASCORBIC ACID 500 MG TAB PO SCH (10:00)
[2021-04-22] MEDS: HEPARIN 5,000 UNIT/1 ML VIAL SUB-Q SCH (10:01)
[2021-04-22] MEDS: FAMOTIDINE 20 MG TAB PO SCH (10:01)
[2021-04-22] MEDS: methylPREDNISolone Sod Succinate 40 MG/1 ML INJ IV SCH (10:02)
--- NOTE | 2021-04-22 11:28 | Progress Note ---
Assessment and Plan Cultures: Blood culture no growth so far A/P: 60-year-old female past medical history hypertension admitted with COVID-19 #Severe COVID-19 pneumonia: Patient presented with a week of symptoms, chest x- ray with diffuse bilateral infiltrates, admission O2 sats decreased on room air. Inflammatory markers much improved. #Acute hypoxemic respiratory failure: Likely secondary to COVID-19 infection. Currently on NC #Obesity #Leukopenia: Likely secondary to COVID-19. Resolved. Recs: -Complete remainder of steroid course (total 10 days). CRP normal. -completed remdesivir -noted plans for discharge with home oxygen Jany Tapia MD, FACP [facility] O: [phone] F: [phone] Subjective Date of service: 04/22/21 Principal diagnosis: Covid-19 Interval history: No fever. Remains on oxygen by [place]. Noted plans for discharge. Objective - Exam Narrative Exam: Physical Exam (reviewed in chart to minimize risk of transmission) Constitutional: deferred Head, Ears, Nose: deferred Eyes: deferred Neck: deferred Oral: deferred Cardiovascular: deferred Respiratory: deferred GI: deferred Musculoskeletal: deferred Skin: deferred Hem/Lymphatic: deferred Psych: deferred Neurological: deferred - Constitutional Vitals: Vital Signs Temp Pulse Resp BP Pulse Ox 98.7 F 71 16 132/73 100 04/22/21 05:33 04/22/21 10:00 04/22/21 10:00 04/22/21 05:33 04/22/21 10:00 Temperature -Last 24 Hours Temperature 98.7 F Temperature 98.8 F Temperature 98.3 F Temperature 98.3 F - Labs CBC & Chem 7: 04/17/21 04:43 04/21/21 06:53 Labs: Abnormal lab results 04/21/21 04/21/21 04/21/21 Range/Units 12:03 15:17 22:44 POC Glucose 147 H 332 H 193 H (70-105) mg/dL
--- NOTE | 2021-04-22 12:55 | Progress Note ---
Assessment and Plan 60 y/o female with acute respiratory failure secondary to COVID 19 pneumonia. 04/22/21: Agree with discharge 04/21/21: Wean FiO2 for sats >88%. Walk test once FiO2 is weaned down further. HOpeful discharge soon. 04/20/21: No new recs. Continue to wean FiO2 for sats >88%. Hopeful discharge soon. Suggest walk test tomorrow or later today if weaned down to 2-3 liters nasal cannula. Prone Steroids Remdesivir Stop aerosols. Subjective Date of service: 04/22/21 Principal diagnosis: Covid-19 Interval history: No acute events. Need 3 liters oxygen for ambulation. Waiting on tank to be delivered Objective Vital Signs - 12hr 04/22/21 04/22/21 04/22/21 02:00 05:33 10:00 Temperature 98.7 F Pulse Rate 71 Pulse Rate [ 71 Right Radial] Respiratory 20 16 Rate Blood Pressure 132/73 O2 Sat by Pulse 100 97 100 Oximetry Constitutional: alert, other (mild distress) Eyes: non-icteric ENT: oropharynx moist Neck: supple Effort: normal Ascultation: Bilateral: other (decreased bs at both bases) CBC and BMP: 04/17/21 04:43 04/21/21 06:53 ABG, PT/INR, D-dimer: PT/INR, D-dimer D-Dimer 293.28 ng/mlDDU (0-234) H 04/20/21 08:25 Abnormal lab findings: Abnormal Labs 04/14/21 04/14/21 04/14/21 12:51 12:51 12:51 WBC 3.3 L RBC 5.04 H MCH 26 L RDW 21.6 H Lymphocytes % (Manual) Lymphocytes # (Manual) 0.8 L D-Dimer 986.33 H Sodium Potassium 3.4 L Chloride 96.1 L BUN 6 L Creatinine Glucose POC Glucose Hemoglobin A1c Calcium 7.9 L Ferritin AST 56 H Lactate Dehydrogenase 505 H C-Reactive Protein 16.80 H Albumin 3.8 L Triglycerides HDL Cholesterol Coronavirus (PCR) 04/14/21 04/15/21 04/15/21 12:51 04:11 04:11 WBC 3.3 L RBC MCH 26 L RDW 19.1 H Lymphocytes % (Manual) 11.0 L Lymphocytes # (Manual) 0.4 L D-Dimer Sodium Potassium Chloride BUN Creatinine 0.5 L Glucose 191 H POC Glucose Hemoglobin A1c Calcium 7.5 L Ferritin 308.5 H AST Lactate Dehydrogenase C-Reactive Protein Albumin Triglycerides HDL Cholesterol Coronavirus (PCR) 04/15/21 04/16/21 04/16/21 08:00 07:11 07:11 WBC RBC MCH 25 L RDW 21.3 H Lymphocytes % (Manual) Lymphocytes # (Manual) D-Dimer Sodium Potassium Chloride BUN 4 L Creatinine 0.5 L Glucose 317 H POC Glucose Hemoglobin A1c Calcium Ferritin AST Lactate Dehydrogenase C-Reactive Protein Albumin Triglycerides HDL Cholesterol Coronavirus (PCR) Positive A 04/17/21 04/17/21 04/17/21 04:43 04:43 04:43 WBC RBC MCH 26 L RDW 20.3 H Lymphocytes % (Manual) Lymphocytes # (Manual) D-Dimer 490.01 H Sodium 147 H Potassium Chloride 108.0 H BUN 6 L Creatinine 0.5 L Glucose 354 H POC Glucose Hemoglobin A1c Calcium 8.3 L Ferritin AST 65 H Lactate Dehydrogenase 408 H C-Reactive Protein Albumin 3.5 L Triglycerides HDL Cholesterol Coronavirus (PCR) 04/17/21 04/17/21 04/17/21 04:43 04:43 09:41 WBC RBC MCH RDW Lymphocytes % (Manual) Lymphocytes # (Manual) D-Dimer Sodium Potassium Chloride BUN Creatinine Glucose POC Glucose 266 H Hemoglobin A1c 7.1 H Calcium Ferritin AST Lactate Dehydrogenase C-Reactive Protein Albumin Triglycerides 206 H HDL Cholesterol 23 L Coronavirus (PCR) 04/17/21 04/17/21 04/17/21 12:06 17:01 22:11 WBC RBC MCH RDW Lymphocytes % (Manual) Lymphocytes # (Manual) D-Dimer Sodium Potassium Chloride BUN Creatinine Glucose POC Glucose 406 H 349 H 374 H Hemoglobin A1c Calcium Ferritin AST Lactate Dehydrogenase C-Reactive Protein Albumin Triglycerides HDL Cholesterol Coronavirus (PCR) 04/18/21 04/18/21 04/18/21 04:35 08:06 11:48 WBC RBC MCH RDW Lymphocytes % (Manual) Lymphocytes # (Manual) D-Dimer Sodium 146 H Potassium 3.3 L Chloride BUN Creatinine 0.5 L Glucose 340 H POC Glucose 280 H 359 H Hemoglobin A1c Calcium 8.1 L Ferritin AST 45 H Lactate Dehydrogenase C-Reactive Protein Albumin 3.4 L Triglycerides HDL Cholesterol Coronavirus (PCR) 04/18/21 04/18/21 04/19/21 16:27 21:04 06:51 WBC RBC MCH RDW Lymphocytes % (Manual) Lymphocytes # (Manual) D-Dimer Sodium Potassium 3.2 L Chloride BUN Creatinine 0.5 L Glucose 278 H POC Glucose 332 H 358 H Hemoglobin A1c Calcium 8.1 L Ferritin AST Lactate Dehydrogenase C-Reactive Protein Albumin 3.3 L Triglycerides HDL Cholesterol Coronavirus (PCR) 04/19/21 04/19/21 04/19/21 07:41 10:47 16:54 WBC RBC MCH RDW Lymphocytes % (Manual) Lymphocytes # (Manual) D-Dimer Sodium Potassium Chloride BUN Creatinine Glucose POC Glucose 235 H 316 H 352 H Hemoglobin A1c Calcium Ferritin AST Lactate Dehydrogenase C-Reactive Protein Albumin Triglycerides HDL Cholesterol Coronavirus (PCR) 04/19/21 04/20/21 04/20/21 21:33 07:22 08:25 WBC RBC MCH RDW Lymphocytes % (Manual) Lymphocytes # (Manual) D-Dimer 293.28 H Sodium Potassium Chloride BUN Creatinine Glucose POC Glucose 402 H 249 H Hemoglobin A1c Calcium Ferritin AST Lactate Dehydrogenase C-Reactive Protein Albumin Triglycerides HDL Cholesterol Coronavirus (PCR) 04/20/21 04/20/21 04/20/21 11:01 16:22 21:12 WBC RBC MCH RDW Lymphocytes % (Manual) Lymphocytes # (Manual) D-Dimer Sodium Potassium Chloride BUN Creatinine Glucose POC Glucose 270 H 258 H 367 H Hemoglobin A1c Calcium Ferritin AST Lactate Dehydrogenase C-Reactive Protein Albumin Triglycerides HDL Cholesterol Coronavirus (PCR) 04/21/21 04/21/21 04/21/21 06:53 07:37 12:03 WBC RBC MCH RDW Lymphocytes % (Manual) Lymphocytes # (Manual) D-Dimer Sodium Potassium Chloride BUN Creatinine 0.4 L Glucose 193 H POC Glucose 182 H 147 H Hemoglobin A1c Calcium Ferritin AST Lactate Dehydrogenase C-Reactive Protein Albumin Triglycerides HDL Cholesterol Coronavirus (PCR) 04/21/21 04/21/21 04/22/21 15:17 22:44 12:30 WBC RBC MCH RDW Lymphocytes % (Manual) Lymphocytes # (Manual) D-Dimer Sodium Potassium Chloride BUN Creatinine Glucose POC Glucose 332 H 193 H 169 H Hemoglobin A1c Calcium Ferritin AST Lactate Dehydrogenase C-Reactive Protein Albumin Triglycerides HDL Cholesterol Coronavirus (PCR)
[2021-04-22 13:27] VITALS: BP 139/71
== END 2021-04-22 15:06 | disposition home or self-care (01) | DRG 177 ==
LOC: ED 12:09 → 3A 14:00
PROVIDERS: ADMIT Internal Medicine; ATTEND Student in an Organized Health Care Education/Training Program
PROC: XW033E5 Introduction of Remdesivir Anti-infective into Peripheral Vein, Percutaneous Approach, New Technology Group 5 (ICD-10-PCS; principal; 2021-04-16)
DX: U07.1 COVID-19 (principal); J96.01 Acute respiratory failure with hypoxia; J12.82 Pneumonia due to coronavirus disease 2019; I72.8 Aneurysm of other specified arteries; D72.819 Decreased white blood cell count, unspecified; Z82.49 Family history of ischemic heart disease and other diseases of the circulatory system; E66.9 Obesity, unspecified; Z68.36 Body mass index [BMI] 36.0-36.9, adult; I10 Essential (primary) hypertension; E11.65 Type 2 diabetes mellitus with hyperglycemia; E87.6 Hypokalemia
CPT/HCPCS: 36415; 71045; 71275; 80048; 80053; 80061; 80076; 82728; 82962; 83036; 83615; 83735; 84100; 84145; 85007; 85025; 85027; 85379; 86140; 87040; 94640; 94760; G0378; Q0177; Q9967; J0456; J0696; J1100; J1644; J1815; J2920; J7030; J7050; J8540; U0003